=== PATIENT | male | born 1935 | race Caucasian/White ===

== ENCOUNTER 2022-07-20 23:29 | Observation (INO) ==
[2022-07-20] MEDS ORDERED: FUROSEMIDE 40 MG/4 ML VIAL IV ONE (23:56)
--- NOTE | 2022-07-20 23:59 | Emergency Department Note ---
History of Present Illness General Chief complaint: Shortness of Breath/Dyspnea Stated complaint: SOB,LEGS POOLING WATER,FATIGUE Time Seen by Provider: 07/20/22 23:33 History of Present Illness 86-year-old male with a history of CHF, A. fib, leg swelling, currently on Bumex, states this evening that he noticed his legs were more swollen than usual and he states some shortness of breath. Patient denies chest pain denies dyspnea on exertion denies cough denies fever. Patient reportedly is scheduled in a few weeks for a cardioversion due to atrial fibrillation. Patient takes daily Bumex 1 mg in the morning for which he states he took today. There are no other complaints Home Medications Medication Instructions Recorded Confirmed Type atorvastatin 20 mg tablet 20 mg PO 01/19/19 07/21/22 History coenzyme Q10 100 mg capsule 100 mg PO [facility] 01/19/19 07/21/22 History (CoQ-10) lansoprazole 30 mg capsule,delayed 30 mg PO [facility] 01/19/19 07/21/22 History release levothyroxine 88 mcg tablet 88 mcg PO [facility] 01/19/19 07/21/22 History tamsulosin 0.4 mg capsule 0.8 mg PO 01/19/19 07/21/22 History vit C 250 mg-vit E 90 mg-zinc 40 1 tab PO [facility] 01/19/19 07/21/22 History mg-copper 1 rv-njesmh-rovhcl capsule (PreserVision AREDS-2) Lactobacil.acidophilus-Bifido.animalis 1 cap PO 07/21/22 07/21/22 History 5 billion cell sprinkle capsule (Probiotic) amiodarone 200 mg tablet 200 mg PO BID 07/21/22 07/21/22 History apixaban 2.5 mg tablet (Eliquis) 2.5 mg PO BID 07/21/22 07/21/22 History bumetanide 0.5 mg tablet 0.5 mg PO QAM 07/21/22 07/21/22 History cyanocobalamin (vitamin B-12) 1,000 mcg PO QAM 07/21/22 07/21/22 History 1,000 mcg tablet (Vitamin B-12) docusate sodium 100 mg capsule 100 mg PO 07/21/22 07/21/22 History (Stool Softener) empagliflozin 10 mg tablet 5 mg PO DAILY 07/21/22 07/21/22 History (Jardiance) Allergies Allergy/AdvReac Type Severity Reaction Status Date / Time No Known Allergies Allergy Verified 07/21/22 00:50 Past Med/Surg History Medical History Enlarged prostate Melanoma Social History Smoking Status: Never smoker Preferred Language: Faroese Feels Safe at Home: Yes Immunizations: Past medical history A. fib, CHF Review of Systems A total of 10 systems reviewed and were otherwise negative Respiratory: + dyspnea Physical Exam Vital Signs Vital Signs - 24 hr 07/20/22 23:35 07/21/22 01:33 Temperature 36.3 C L Temperature Source Temporal Artery Scan Pulse Rate 72 Respiratory Rate 20 Respiratory Effort / Characteristics Non-Labored Spontaneous Respiratory Depth Normal Respiratory Pattern Regular Blood Pressure 128/71 Blood Pressure Mean 90 Pulse Oximetry 96 95 Oxygen Delivery Method Room Air Room Air Sepsis Recent Fever Within 48 Hours No Sepsis New/Unexplained Change in Mental Status No Sepsis Action Taken by Nursing No Action Required GENERAL: Patient is awake alert in no acute distress patient is resting comfortably and showing no signs of anxiety EYES: The conjunctivae are clear. The pupils are round and reactive. EARS, NOSE, MOUTH AND THROAT: The nose is without any evidence of any deformity. Mucous membranes are moist. Tongue is midline. NECK: The neck is nontender and supple. RESPIRATORY: Normal respiratory effort is noted there is no evidence of wheezing rhonchi or rales CARDIOVASCULAR: Irregularly irregular noted there no murmurs rubs or gallops normal S1 normal S2. GASTROINTESTINAL: The abdomen is soft. Abdomen is nontender. BACK: No midline tenderness or or step-off noted range of motion in flexion extension as well as rotation no signs of muscle spasm noted MUSCULOSKELETAL/EXTREMITIES: There is no evidence of gross deformity full range of motion is noted in the hips and shoulders. Bilateral lower extremity pitting edema SKIN: There is no obvious evidence of any rash. There are no petechiae, pallor or cyanosis noted. NEUROLOGIC: Patient is awake alert and oriented x3 strength is symmetric PSYCH: Normal affect Course Reevaluation(s) Reevaluation #1: Patient is resting in no distress, no chest pain no significant shortness of breath, was given IV Lasix Time: 02:22 Consultations Consultation #1: Case was discussed with the [facility] hospitalist who accepts the patient for admission for CHF and elevated troponin Time: 02:22 Administered Medications Discontinued Medications Furosemide (Furosemide 40 Mg/4 Ml Vial) 40 mg IV ONE ONE Stop: 07/20/22 23:57 Last Admin: 07/21/22 00:58 Dose: 40 mg Documented By: MED Medical Decision Making Medical Records Attestation: I reviewed the patient's medical records. Home Medications Current Medication List: was personally reviewed by me Laboratory Data Attestation: I reviewed the patient's lab results. Patient has hyponatremia, elevated BNP, elevated troponin and elevated creatinine 07/21/22 00:23 Lab Results 07/21/22 07/21/22 07/21/22 Range/Units 00:23 00:38 00:38 WBC 6.64 (4.8-10.8) K/ul RBC 4.00 L (4.70-6.10) M/uL Hgb 12.9 L (14.0-18.0) g/dl Hct 36.1 L (42.0-52.0) % MCV 90.3 (80.0-100.0) fL MCH 32.3 (25.0-34.0) pg MCHC 35.7 (32.0-36.0) g/dL RDW Std Deviation 51.6 H (36.4-46.3) fL RDW Coeff of Beata 15.8 H (11.5-14.5) % Plt Count 255 (130-400) K/uL MPV 9.5 (9.4-12.4) fL Immature Gran % (Auto) 0.5 % Neut % (Auto) 74.5 % Lymph % (Auto) 10.8 % Bennett % (Auto) 13.4 % Eos % (Auto) 0.5 % Baso % (Auto) 0.3 % Neut # (Auto) 4.95 (1.40-6.50) K/uL Lymph # (Auto) 0.72 L (1.2-3.4) K/uL Bennett # (Auto) 0.89 H (0.11-0.59) K/uL Eos # (Auto) 0.03 (0-0.50) K/uL Baso # (Auto) 0.02 (0-0.2) K/uL Immature Gran # (Auto) 0.03 (0.01-0.20) K/uL PT 13.5 H (9.0-12.0) Seconds INR 1.3 H (0.9-1.1) APTT 30.8 (21.0-31.0) Seconds PTT Ratio 1.1 Sodium 127 L (136-145) mmol/L Potassium 4.0 (3.5-5.1) mmol/L Chloride 91 L (98-107) mmol/L Carbon Dioxide 29 (21-32) mmol/L Anion Gap 7 (3-11) BUN 26 H (6-23) mg/dl Creatinine 1.53 H (0.6-1.4) mg/dl Est Cr Clr Drug Dosing 38.2 ml/min Est GFR ( Amer) 46.7 ml/min Est GFR (Non-Af Amer) 40.3 ml/min BUN/Creatinine Ratio 17.0 (10-20) Glucose 120 H (70-99(Fasting)) mg/dl Calcium 9.2 (8.5-10.1) mg/dl Total Bilirubin 1.0 (0.2-1.0) mg/dl AST 24 (13-39) U/L ALT 16 (7-52) U/L Alkaline Phosphatase 97 (34-104) U/L Troponin I High Sens 130.5 H* (0-20) pg/ml B-Natriuretic Peptide (0-100) pg/ml Total Protein 7.2 (6.0-8.3) gm/dl Albumin 4.1 (3.4-5.0) gm/dl Globulin 3.1 (2.5-4.0) gm/dl Albumin/Globulin Ratio 1.3 (0.9-2) SARS-CoV-2, RNA, NAAT (NEGATIVE) 07/21/22 07/21/22 Range/Units 00:38 01:04 WBC (4.8-10.8) K/ul RBC (4.70-6.10) M/uL Hgb (14.0-18.0) g/dl Hct (42.0-52.0) % MCV (80.0-100.0) fL MCH (25.0-34.0) pg MCHC (32.0-36.0) g/dL RDW Std Deviation (36.4-46.3) fL RDW Coeff of Beata (11.5-14.5) % Plt Count (130-400) K/uL MPV (9.4-12.4) fL Immature Gran % (Auto) % Neut % (Auto) % Lymph % (Auto) % Bennett % (Auto) % Eos % (Auto) % Baso % (Auto) % Neut # (Auto) (1.40-6.50) K/uL Lymph # (Auto) (1.2-3.4) K/uL Bennett # (Auto) (0.11-0.59) K/uL Eos # (Auto) (0-0.50) K/uL Baso # (Auto) (0-0.2) K/uL Immature Gran # (Auto) (0.01-0.20) K/uL PT (9.0-12.0) Seconds INR (0.9-1.1) APTT (21.0-31.0) Seconds PTT Ratio Sodium (136-145) mmol/L Potassium (3.5-5.1) mmol/L Chloride (98-107) mmol/L Carbon Dioxide (21-32) mmol/L Anion Gap (3-11) BUN (6-23) mg/dl Creatinine (0.6-1.4) mg/dl Est Cr Clr Drug Dosing ml/min Est GFR ( Amer) ml/min Est GFR (Non-Af Amer) ml/min BUN/Creatinine Ratio (10-20) Glucose (70-99(Fasting)) mg/dl Calcium (8.5-10.1) mg/dl Total Bilirubin (0.2-1.0) mg/dl AST (13-39) U/L ALT (7-52) U/L Alkaline Phosphatase (34-104) U/L Troponin I High Sens (0-20) pg/ml B-Natriuretic Peptide 577 H (0-100) pg/ml Total Protein (6.0-8.3) gm/dl Albumin (3.4-5.0) gm/dl Globulin (2.5-4.0) gm/dl Albumin/Globulin Ratio (0.9-2) SARS-CoV-2, RNA, NAAT NEGATIVE (NEGATIVE) Imaging Data Attestation: I personally reviewed and interpreted this imaging study as follows: My Impression: Chest x-ray interpreted by me cardiomegaly and CHF ECG Data Attestation: I personally reviewed and interpreted this ECG as follows: Additional Comments: EKG interpreted by me atrial fibrillation rate of 61 left axis deviation no obvious ST segment elevation or depression MDM Narrative Medical decision making differential diagnosis includes CHF, atrial fibrillation, pedal edema, electrolyte abnormality, renal dysfunction Plan is to check labs EKG, chest x-ray, give IV diuretic External medical records were reviewed by me Nursing notes were independently reviewed by me and appreciated Independent history was provided by son who is at bedside Patient's chest x-ray shows CHF Patient was given IV Lasix Patient has an elevated troponin Patient's heart score is moderate Patient will be admitted to the hospitalist service as the patient has risk for cardiac event Impression & Plan Congestive heart failure, Elevated troponin Discharge Plan Visit Data Chief Complaint: Shortness of Breath/Dyspnea Stated Complaint: SOB,LEGS POOLING WATER,FATIGUE ED Provider: Wali Salomon Discharge Problem: Congestive heart failure, Elevated troponin Patient Disposition: Admitted As Inpatient Forms Stand Alone Forms: My [facility] Prescriptions Prescriptions: No Action atorvastatin 20 mg Tablet 20 mg PO HS levothyroxine 88 mcg Tablet 88 mcg PO QAM tamsulosin 0.4 mg Capsule 0.8 mg PO HS lansoprazole 30 mg Capsule,Delayed Release(Dr/Ec) 30 mg PO QAM coenzyme Q10 [CoQ-10] 100 mg Capsule 100 mg PO QAM PreserVision AREDS-2 [id number] Capsule 1 tab PO QAM amiodarone 200 mg tablet 200 mg PO BID cyanocobalamin (vitamin B-12) [Vitamin B-12] 1,000 mcg Tablet 1,000 mcg PO QAM bumetanide 0.5 mg tablet 0.5 mg PO QAM docusate sodium [Stool Softener] 100 mg Capsule 100 mg PO HS Eliquis 2.5 mg tablet 2.5 mg PO BID Probiotic 5 billion cell Capsule, Sprinkle 1 cap PO HS Jardiance 10 mg tablet 5 mg PO DAILY Rx Instructions: PER PT'S SON "HAD BEEN TAKING 10 MG FOR SOME TIME, BUT WAS TO BE ONLY TAKING 5 MG". Referrals Referrals: Tin Overton [Primary Care Provider] -
[2022-07-21 00:56] LABS: Basophils # (auto) 0.02 K/uL (0-0.2); Basophils % (auto) 0.3 %; Eosinophils # (auto) 0.03 K/uL (0-0.50); Eosinophils % (auto) 0.5 %; Hematocrit (blood only) 36.1 % (42.0-52.0); Hemoglobin 12.9 g/dl (14.0-18.0); Immature Granulocytes # (auto) 0.03 K/uL (0.01-0.20); Immature Granulocytes % (auto) 0.5 %; Lymphocytes # (auto) 0.72 K/uL (1.2-3.4); Lymphocytes % (auto) 10.8 %; Mean Corpuscular Hemoglobin 32.3 pg (25.0-34.0); Mean Corpuscular Hgb Conc 35.7 g/dL (32.0-36.0); Mean Corpuscular Volume 90.3 fL (80.0-100.0); Mean Platelet Volume 9.5 fL (9.4-12.4); Monocytes # (auto) 0.89 K/uL (0.11-0.59); Monocytes % (auto) 13.4 %; Neutrophils # (auto) 4.95 K/uL (1.40-6.50); Neutrophils % (auto) 74.5 %; Platelet Count 255 K/uL (130-400); RDW Coefficient of Variation 15.8 % (11.5-14.5); RDW Standard Deviation 51.6 fL (36.4-46.3); White Blood Count 6.64 K/ul (4.8-10.8)
[2022-07-21 01:44] LABS: Albumin Globulin Ratio 1.3 (0.9-2); Albumin Level 4.1 gm/dl (3.4-5.0); Calcium 9.2 mg/dl (8.5-10.1); Creatinine Clr Calc Pharmacy 38.2 ml/min; Est GFR (African American) 46.7 ml/min; Est GFR (Non-African American) 40.3 ml/min; Globulin 3.1 gm/dl (2.5-4.0); Total Protein 7.2 gm/dl (6.0-8.3)
[2022-07-21 01:59] LABS: Troponin I High Sensitivity 130.5 pg/ml (0-20)
[2022-07-21 02:18] LABS: INR 1.3 (0.9-1.1); Partial Thromboplastin Ratio 1.1; Partial Thromboplastin Time 30.8 Seconds (21.0-31.0); Prothrombin Time 13.5 Seconds (9.0-12.0)
--- NOTE | 2022-07-21 02:22 | History & Physical Report ---
Date of Service July 21, 2022 Assessment & Plan (1) Congestive heart failure: Plan: Deion is an 86 year old male w/ PmHx atrial flutter s/p ablation x2, chronic diastolic HF w/ recent hospitalization 05/2022, RBBB w/ L anterior fascicular block, chronic lower extremity edema, high grade asymptomatic L internal carotid artery stenosis s/p L carotid endarterectomy 01/2019, a. fib on Eliquis, hypothyroidism, BPH admitted for CHF exacerbation. Acute on Chronic CHF exacerbation: -BNP 577, troponin 130.5, BUN 26, creatinine 1.53. -CXR w/ cardiomegaly and mild pulmonary congestion. -EKG w/ atrial fibrillation. -Echo from 05/2022 w/ EF 55-60%, severe R atrial enlargement. -Given exam and still 5lbs above ideal weight, most likely CHF exacerbation likely residual from May exacerbation. -Less likely pulmonary infection given lack of systemic symptoms or decrease O2 sat. -Given 40mg IV Lasix in the ED. -Started on Bumex 1mg BID IV. -Strict I&O's. Atrial fibrillation: -Rate controlled, continue home amiodarone, continue home Eliquis 2.5mg BID. -Continue to monitor on med/tele. MAXIMINO on CKD: -Creatinine 1.53 on admission. -Baseline around 1.2-1.4 based on [facility] records. -May be secondary to fluid overload. -Continue plan as above, trend BMP. Elevated Troponin: -Troponin 130.5 on admission. -Repeat ordered. -Most likely due to demand ischemia from fluid overload. -Trend till peak. BLE Erythema: -New skin changes to the b/l lower extremities. -Anticoagulated on eliquis, bilateral, less likely clots. -May be new skin infection - started on doxycycline 100mg BID for 7 days. Hypothyroidism: -Continue home levothryoxine. BPH: -Continue home tamsulosin. HLD: -Continue home atorvastatin. GERD: -Continue home lansoprazole. DVT Prophylaxis: (2) Hypothyroid: (3) Atrial fibrillation: (4) GERD (gastroesophageal reflux disease): (5) Sleep apnea: History of Present Illness Chief Complaint: Dyspnea Primary Care Provider: Tin Overton Deion is an 86 year old male w/ PmHx atrial flutter s/p ablation x2, chronic diastolic HF w/ recent hospitalization 05/2022, RBBB w/ L anterior fascicular block, chronic lower extremity edema, high grade asymptomatic L internal carotid artery stenosis s/p L carotid endarterectomy 01/2019, a. fib on Eliquis, hypothyroidism, BPH coming to the ED for dyspnea. Patient states that he was lying in bed earlier today when he noticed that his feet and ankles were more swollen than usual. He states that he also had some dyspnea with exertion. Denies any chest pain, fevers, chills, shortness of breath at rest, diarrhea, constipation, nausea, vomiting. [facility] He states that prior to March he was in as good of health as he could be with his heart failure however he was in [place] between the months of March and May. He developed atrial fibrillation sometime in between then and had one hospitalization around Valentina time in [place] for CHF exacerbation. He saw Dr. Chávez recently this month and it was decided that they would trial an ablation for the a. fib on 08/04/2022. He is not a smoker, no tobacco use, no alcohol, no previous history of COPD, asthma, or pulmonary disease. He drinks a glass of wine every day in the evening, has a low to no salt diet, states he had rooney chops for dinner today. Patient states his baseline weight is around 185-186lbs and when he weighed himself earlier in the day his weight was 190lbs. Patient has redness at the bilateral lower extremities that are new to him. In the ED CBC unremarkable, INR 1.3, Na 127, BUN 26, creatinine 1.53, BNP 577, Trop 130.5, COVID negative. CXR w/ cardiomegaly and mild pulmonary congestion, EKG w/ atrial fibrillation. He was given 40mg IV Lasix. Upon further inspection of [facility] chart, patient saw Dr. Chávez 07/16/2022. Dr. Chávez notes patient has history of atrial flutter w/ ablation x2 November 2015 and March 2018, acute on chronic diastolic and R sided HF exacerbated by new onset a. fib in late 2021, hx of L carotid endarterectomy 2018, hyponatremia secondary to heart failure and MAXIMINO ontop of CKD during his hospitalization in [facility] in 05/2022. At the hospital in [place] he had TTE which revealed normal LV size and function w/ moderate concentric L ventricular hypertrophy, EF 55-60%, RV mildly dilated w/ mild RV dysfunction, mod left atrial enlargement, severe R atrial enlargement, mild aortic and mitral regurg, mod tricuspid regurg w/ mild pulmonary HTN and large left pleural effusion. He was still up 8 pounds upon return from [place], short of breath w/ sentences at time of visit w/ Dr. Chávez, still with significant swelling even to distal thighs w/ use of compression stockings. Most recent blood work showed sodium improved to 128, BUN 33, creatinine 1.48, K+ 4.8. He was started on amiodarone 200mg BID for loading dose over two weeks then plan for the cardioversion. Allergies Allergy/AdvReac Type Severity Reaction Status Date / Time No Known Allergies Allergy Verified 07/21/22 00:50 Home Medications Medication Instructions Recorded Confirmed Type atorvastatin 20 mg tablet 20 mg PO 01/19/19 07/21/22 History coenzyme Q10 100 mg capsule 100 mg PO [facility] 01/19/19 07/21/22 History (CoQ-10) lansoprazole 30 mg capsule,delayed 30 mg PO [facility] 01/19/19 07/21/22 History release levothyroxine 88 mcg tablet 88 mcg PO [facility] 01/19/19 07/21/22 History tamsulosin 0.4 mg capsule 0.8 mg PO 01/19/19 07/21/22 History vit C 250 mg-vit E 90 mg-zinc 40 1 tab PO [facility] 01/19/19 07/21/22 History mg-copper 1 no-uurzas-kpajsb capsule (PreserVision AREDS-2) Lactobacil.acidophilus-Bifido.animalis 1 cap PO 07/21/22 07/21/22 History 5 billion cell sprinkle capsule (Probiotic) amiodarone 200 mg tablet 200 mg PO BID 07/21/22 07/21/22 History apixaban 2.5 mg tablet (Eliquis) 2.5 mg PO BID 07/21/22 07/21/22 History bumetanide 0.5 mg tablet 0.5 mg PO QAM 07/21/22 07/21/22 History cyanocobalamin (vitamin B-12) 1,000 mcg PO QAM 07/21/22 07/21/22 History 1,000 mcg tablet (Vitamin B-12) docusate sodium 100 mg capsule 100 mg PO HS 07/21/22 07/21/22 History (Stool Softener) empagliflozin 10 mg tablet 5 mg PO DAILY 07/21/22 07/21/22 History (Jardiance) Past Med/Surg History Medical History Enlarged prostate Melanoma Social History Smoking Status: Never smoker Hx Alcohol Use: Yes Alcohol type: wine Hx Substance Use: No Preferred Language: Frisian Communication Ability: Effective Process Laboratory Specialist Required: No Beliefs That Will Affect Care: None Current Living Situation: Spouse Current Living Situation Comment: Apartment Feels Safe at Home: Yes Safety Concerns: Feels Safe At This Time Assistive Devices: None Review of Systems Review of Systems: As per HPI. Physical Exam Constitutional: WD/WN, vitals as above Respiratory: normal respiratory effort, lungs clear to auscultation Cardiovascular: Rate/Rhythm: + irregularly irregular Heart Sounds: normal S1 and normal S2 2+ pitting edema at bilateral lower extremities up to the rivero, 1+ pitting edema up to knee. Gastrointestinal (Abdomen): normal bowel sounds, soft, nontender, no hepatosplenomegaly Skin: erythematous blanching rash across bilateral lower extremities. Psychiatric: A+Ox3, euthymic affect Results & Data Results & Data ([facility]) Vital Signs (Past 12 Hours) Vital Signs Temp Pulse Resp BP Pulse Ox O2 Del Method 07/21/22 01:33 95 Room Air 07/20/22 23:35 36.3 C L 72 20 128/71 96 Room Air Supervising Physician Co-Signing Physician Notes Attending addendum: I have physically seen this patient, have supervised the medical residents activities, and agree with the H&P unless as otherwise noted. Assessment and Plan: Elevated troponin/acute on chronic HFpEF with EF 55-60%/atrial fibrillation- Troponin 130.5 on admission and BNP 577 The patient will be admitted to telemetry for serial cardiac enzymes, serial EKG's, cardiac rhythm monitoring Received Lasix 40 mg IV in ED Hold oral Bumex 0.5 mg twice daily, and change to Bumex 1 mg IV twice daily Continue amiodarone and Eliquis Check serial renal profile and magnesium levels Bilateral lower extremity cellulitis- Doxycycline as noted Check MRSA swab MAXIMINO on CKD- Creatinine 1.53 with baseline range 1.2-1.4 Follow laboratories as noted Hyperlipidemia- Continue atorvastatin Check a fasting lipid panel Hypothyroidism- Continue levothyroxine BPH- Continue tamsulosin GERD- Continue lansoprazole/pantoprazole Remaining orders and notations as noted Resident Activity Tracking Resident Involvement: Resident Care Provided Care Provided: Adult Hospital Medicine
[2022-07-21] MEDS ORDERED: ACETAMINOPHEN 325 MG TAB PO PRN (03:36)
[2022-07-21] MEDS ORDERED: LEVOTHYROXINE SODIUM 88 MCG TABLET PO SCH (06:30)
--- NOTE | 2022-07-21 07:29 | XRay Report ---
XR chest 1V portable CLINICAL HISTORY: Chest pain, nonspecific COMPARISON STUDY: Chest radiograph January 16, 2019. FINDINGS: Left neck surgical clips are incidentally noted. There is no pneumothorax. Small bilateral pleural effusions with bibasilar opacities are present. Moderate cardiomegaly is noted with interstit ial thickening.. IMPRESSION: Cardiomegaly with interstitial pulmonary edema with small bilateral pleural effusions and associated bibasilar opacities. Radiographic follow-up to ensure resolution is recommended. ACT 112: Negative or not required by law. Electronically signed by: Juan Ramon Sharpe M.D. 07/21/2022 7:27 AM
--- NOTE | 2022-07-21 07:36 | Hospitalist Progress Note ---
Date of Service July 21, 2022 Assessment & Plan (1) Congestive heart failure: Plan: Deion is an 86 year old male w/ PmHx atrial flutter s/p ablation x2, chronic diastolic HF w/ recent hospitalization 05/2022, RBBB w/ L anterior fascicular block, chronic lower extremity edema, high grade asymptomatic L internal carotid artery stenosis s/p L carotid endarterectomy 01/2019, a. fib on Eliquis, hypothyroidism, BPH admitted for CHF exacerbation. Acute on Chronic CHF exacerbation: -BNP 577, troponin 130.5, BUN 26, creatinine 1.53. -CXR w/ cardiomegaly and mild pulmonary congestion. -EKG w/ atrial fibrillation. -Echo from 05/2022 w/ EF 55-60%, severe R atrial enlargement. -Given exam and still 5lbs above ideal weight, most likely CHF exacerbation likely residual from May exacerbation. -Less likely pulmonary infection given lack of systemic symptoms or decrease O2 sat. -Given 40mg IV Lasix in the ED. -Started on Bumex 1mg BID IV. -Strict I&O's. Atrial fibrillation: -Rate controlled, continue home amiodarone, continue home Eliquis 2.5mg BID. -Continue to monitor on med/tele. MAXIMINO on CKD: -Creatinine 1.53 on admission. -Baseline around 1.2-1.4 based on [facility] records. -May be secondary to fluid overload. -Continue plan as above, trend BMP. Elevated Troponin: -Troponin 130.5 on admission. -Repeat ordered. -Most likely due to demand ischemia from fluid overload. -Trend till peak. BLE Erythema: -New skin changes to the b/l lower extremities. -Anticoagulated on eliquis, bilateral, less likely clots. -May be new skin infection - started on doxycycline 100mg BID for 7 days. Hypothyroidism: -Continue home levothryoxine. BPH: -Continue home tamsulosin. HLD: -Continue home atorvastatin. GERD: -Continue home lansoprazole. DVT Prophylaxis: (2) Hypothyroid: (3) Atrial fibrillation: (4) GERD (gastroesophageal reflux disease): (5) Sleep apnea: Admission and Anticipated Discharge Date Admission Date: July 21, 2022 Review of Systems Review of Systems: As per HPI. Physical Exam Physical Exam: Constitutional:L WD/WN, vitals as a yulisa Respiratory: normal respiratory effort, lungs lisa ar to auscultation Cardiovascular:L Rate/Rhythm: + irr egularly irregular Heart Sounds: no rmal S1 and normal S2 2+ pitting ed fabio at bilateral l ower extremities u p to the rivero, 1+ pitting edema up t o knee. Gastrointestinal ( Abdomen): normal bowel sound s, soft, nontender , no hepatosplenom egaly Skin: erythematous chris thomas rash across b ilateral lower ext remities. Psychiatric: A+Ox3, euthymic af fect Results & Data Results & Data ([facility]) Vital Signs (Past 12 Hours) Vital Signs Temp Pulse Pulse Resp BP BP Pulse Ox 07/21/22 06:40 56 L 118/60 95 07/21/22 04:30 58 L 19 93 07/21/22 04:21 121/69 07/21/22 04:21 72 18 97 07/21/22 04:00 51 L 19 94 07/21/22 03:30 57 L 17 07/21/22 03:00 54 L 21 93 07/21/22 02:30 52 L 19 96 07/21/22 02:12 54 L 19 95 07/21/22 04:26 55 L 16 121/69 96 07/21/22 01:33 95 07/20/22 23:35 36.3 C L 72 20 128/71 96 O2 Del Method 07/21/22 06:40 Room Air 07/21/22 04:30 07/21/22 04:21 07/21/22 04:21 07/21/22 04:00 07/21/22 03:30 07/21/22 03:00 07/21/22 02:30 07/21/22 02:12 07/21/22 04:26 Room Air 07/21/22 01:33 Room Air 07/20/22 23:35 Room Air
[2022-07-21] MEDS ORDERED: NON-FORMULARY MEDICATION (Coenzyme Q10 [Coq-10] 100 mg Capsule) PO SCH (09:00)
[2022-07-21] MEDS ORDERED: EMPAGLIFLOZIN 10 MG TAB PO SCH (09:00)
[2022-07-21] MEDS ORDERED: BUMETANIDE 1 MG in SYRINGE 0 ML IV SCH (09:00)
[2022-07-21] MEDS ORDERED: PANTOprazole 40 MG TAB PO SCH (09:00)
[2022-07-21] MEDS ORDERED: AMIODARONE 200 MG TAB PO SCH (09:00)
[2022-07-21] MEDS ORDERED: APIXABAN 2.5 MG TAB PO SCH (09:00)
[2022-07-21] MEDS ORDERED: DOXYCYCLINE HYCLATE 100 MG CAP PO SCH (09:00)
[2022-07-21 12:55] LABS: BUN Creatinine Ratio 19.1 (10-20); Calcium 9.1 mg/dl (8.5-10.1); Creatinine Clr Calc Pharmacy 41.6 ml/min; Est GFR (African American) 51.5 ml/min; Est GFR (Non-African American) 44.5 ml/min; Potassium 3.8 mmol/L (3.5-5.1)
--- NOTE | 2022-07-21 15:28 | Electrocardiogram Report ---
Test Reason : Blood Pressure : / mmHG Vent. Rate : 061 BPM Atrial Rate : 312 BPM P-R Int : 000 ms QRS Dur : 110 ms QT Int : 418 ms P-R-T Axes : 000 -63 004 degrees QTc Int : 420 ms Atrial fibrillation Left axis deviation Low voltage QRS Right bundle branch block Possible Anterolateral infarct , age undetermined Abnormal ECG No previous ECGs available Confirmed by Darío Stockton ([id number]) on 07/21/2022 3:28:37 PM Referred By: REFERRED SELF Confirmed By:Darío Stockton
--- NOTE | 2022-07-21 18:39 | Discharge Summary ---
Date of Service July 21, 2022 Admission HPI Per Admitting Provider Deion is an 86 year old male w/ PmHx atrial flutter s/p ablation x2, chronic diastolic HF w/ recent hospitalization 05/2022, RBBB w/ L anterior fascicular block, chronic lower extremity edema, high grade asymptomatic L internal carotid artery stenosis s/p L carotid endarterectomy 01/2019, a. fib on Eliquis, hypothyroidism, BPH coming to the ED for dyspnea. Patient states that he was lying in bed earlier today when he noticed that his feet and ankles were more swollen than usual. He states that he also had some dyspnea with exertion. Denies any chest pain, fevers, chills, shortness of breath at rest, diarrhea, constipation, nausea, vomiting. He follows with Dr. Chávez for cardiology outpatient. He states that prior to March he was in as good of health as he could be with his heart failure however he was in [place] between the months of March and May. He developed atrial fibrillation sometime in between then and had one hospitalization around [place] time in [place] for CHF exacerbation. He saw Dr. Chávez recently this month and it was decided that they would trial an ablation for the a. fib on 08/04/2022. He is not a smoker, no tobacco use, no alcohol, no previous history of COPD, asthma, or pulmonary disease. He drinks a glass of wine every day in the evening, has a low to no salt diet, states he had rooney chops for dinner today. Patient states his baseline weight is around 185-186lbs and when he weighed himself earlier in the day his weight was 190lbs. Patient has redness at the bilateral lower extremities that are new to him. In the ED CBC unremarkable, INR 1.3, Na 127, BUN 26, creatinine 1.53, BNP 577, Trop 130.5, COVID negative. CXR w/ cardiomegaly and mild pulmonary congestion, EKG w/ atrial fibrillation. He was given 40mg IV Lasix. Upon further inspection of [facility] chart, patient saw Dr. Chávez 07/16/2022. Dr. Chávez notes patient has history of atrial flutter w/ ablation x2 November 2015 and March 2018, acute on chronic diastolic and R sided HF exacerbated by new onset a. fib in late 2021, hx of L carotid endarterectomy 2019, hyponatremia secondary to heart failure and MAXIMINO ontop of CKD during his hospitalization in [facility] in 05/2022. At the hospital in [place] he had TTE which revealed normal LV size and function w/ moderate concentric L ventricular hypertrophy, EF 55-60%, RV mildly dilated w/ mild RV dysfunction, mod left atrial enlargement, severe R atrial enlargement, mild aortic and mitral regurg, mod tricuspid regurg w/ mild pulmonary HTN and large left pleural effusion. He was still up 8 pounds upon return from [place], short of breath w/ sentences at time of visit w/ Dr. Chávez, still with significant swelling even to distal thighs w/ use of compression stockings. Most recent blood work showed sodium improved to 128, BUN 33, creatinine 1.48, K+ 4.8. He was started on amiodarone 200mg BID for loading dose over two weeks then plan for the cardioversion. Admission Exam Per Admitting Provider Constitutional: WD/WN, vitals as above Respiratory: normal respiratory effort, lungs clear to auscultation Cardiovascular: Rate/Rhythm: + irregularly irregular Heart Sounds: normal S1 and normal S2 2+ pitting edema at bilateral lower extremities up to the rivero, 1+ pitting edema up to knee. Gastrointestinal (Abdomen): normal bowel sounds, soft, nontender, no hepatosplenomegaly Skin: erythematous blanching rash across bilateral lower extremities. Psychiatric: A+Ox3, euthymic affect Principal Diagnosis HF Exacerbation Discharge Exam Gen: NAD, alert, interactive HEENT: Supple, no LAD, no thyromegaly, no JVD Resp:Non-labored, no wheezing/rhonchi/rales, CTAB CV:irregularly irregular, normal S1/S2, no M/R/G Abd: Soft, non-distended, no TTP, normoactive bowels, no masses Extr: 2+ dp bilaterally, 2+ pitting edema to thigh bilaterally Skin: Symmetric erythema present on bilateral lower extremities, no warmth or TTP, no purulence, scant serious drainage Discharge Data Allergies Allergy/AdvReac Type Severity Reaction Status Date / Time No Known Allergies Allergy Verified 07/21/22 00:50 Consultations 07/21/22 02:08 ED Decision to Admit Stat Hospital Course (1) Congestive heart failure: (2) Hypothyroid: (3) Atrial fibrillation: (4) GERD (gastroesophageal reflux disease): (5) Sleep apnea: Plan Deion is an 86 year old male w/ PmHx atrial flutter s/p ablation x2, chronic diastolic HF w/ recent hospitalization 05/2022, RBBB w/ L anterior fascicular block, chronic lower extremity edema, high grade asymptomatic L internal carotid artery stenosis s/p L carotid endarterectomy 01/2019, a. fib on Eliquis, hypothyroidism, BPH admitted for CHF exacerbation. Acute on Chronic CHF exacerbation: -BNP 577, troponin 130.5, BUN 26, creatinine 1.53. -CXR w/ cardiomegaly and mild pulmonary congestion. -EKG w/ atrial fibrillation. -Echo from 05/2022 w/ EF 55-60%, severe R atrial enlargement. -Given exam and still 5lbs above ideal weight, most likely CHF exacerbation likely residual from May exacerbation. -Less likely pulmonary infection given lack of systemic symptoms or decrease O2 sat. -Given 40mg IV Lasix in the ED. -Started on Bumex 1mg BID IV. -Strict I&O's. --- Good diuresis inpatient, discharged with advise to take 1.5 mg Bumex daily for two days --- Patient to follow up outpatient with Research Staff Member, plan for cardioversion 07/23 AFib Atrial fibrillation: -Rate controlled, continue home amiodarone, continue home Eliquis 2.5mg BID. -Continue to monitor on med/tele. --- Move up date for cardioversion d/t increased HF exacerbations, discussed with Dr. Saira STANTON on CKD: -Creatinine 1.53 on admission. -Baseline around 1.2-1.4 based on [facility] records. -May be secondary to fluid overload. -Continue plan as above, trend BMP. --- Suspected d/t acute volume overload, advised diuresis Elevated Troponin: -Troponin 130.5 on admission. -Repeat ordered. -Most likely due to demand ischemia from fluid overload. -Trend till peak. --- Suspect d/t demand ischemia in the setting of acute HF exacerbation, troponin downtrending BLE Erythema: -New skin changes to the b/l lower extremities. -Anticoagulated on eliquis, bilateral, less likely clots. --- Erythema of bilateral LE most consistent with skin changes associated with chronic venous stasis, explained to patient --- No acute need for antibiotics as erythema not consistent with infection Hypothyroidism: -Continue home levothyroxine. BPH: -Continue home tamsulosin. HLD: -Continue home atorvastatin. GERD: -Continue home lansoprazole. Total Time Total Time Spent Total Time Spent (In Minutes): <30 Discharge Plan Discharge Items Patient Disposition: Home - Self-Care Reason For Visit: CHF EXACERBATION Discharge Diagnosis: CHF Exacerbation LE Edema Activity: Per Instructions section Non-emergency contact: Primary Care Provider and Research Staff Member Call non-emergency contact if: you have any medication questions and your symp toms worsen Follow-up/Referrals: Tin Overton [Primary Care Provider] - Rene Chávez DO [Physician] - (Patient to follow up Wednesday) Diet: Heart Healthy and Low Sodium (2gm) Addtl Attending Provider Instructions: You presented to the hospital with worsening lower extremity swelling and redness, you were found to be experiencing a heart failure exacerbation. This was determined based on your worsening swelling, labs, and chest x-ray showing pulmonary edema. While you were in the hospital, you received an IV diuretic (Bumex) to help reduce the fluid in your legs and lungs. During your stay, your vitals remained normal and you did not require any supplemental oxygen, which reassured us that it was reasonable to discharge you to home with close follow up with your Research Staff Member. You noted that your home dose of Bumex is 1 mg daily, for the next two days, please take 1.5 mg daily. It is planned for you to follow up with Dr. Chávez (your Research Staff Member) on Wednesday, he will adjust your diuretic as needed from there. After discussion with Dr. Chávez, it was noted that your Cardiology team will me moving up the date of your planned cardioversion (for Atrial Fibrillation) in an effort to help control your heart failure. During your admission, increased redness in your lower extremities was noted. As we discussed, this skin change is most likely associated with chronic venous stasis. As the swelling in your legs persists, it is not uncommon for small pieces of blood products to become lodged in the skin, causing the red coloration. This redness can wax and wane with the swelling of your legs. There is no evidence of infection in your legs, the redness and occasional clear seeping is associated with your chronic swelling. You will not need to be discharged with any antibiotics. A discharge summary will be sent to your primary care physician to ensure continuity of care. Please bring this discharge summary with you to your next office appointment so that your provider can review it at that time. Follow-up appointments: - I encourage you to make a follow up appointment with your PCP in 1 week - It is planned for you to have a follow up appointment with Dr. Chávez on Wednesday Medications: - Increase your home oral Bumex dose to 1.5 mg daily for two days Contact your Primary Care Provider if you experience: - Difficulty following your treatment plan or taking medications Call 911 or go to the emergency department if you experience: - Sudden, severe abdominal pain or nausea/vomiting - Severe chest pain, or chest pain that radiates (moves) to your jaw or arm - Sudden, severe shortness of breath or difficulty breathing It was a pleasure to be a part of your care, Dr. Cas Murcia Pending Studies at Discharge: No Stand-Alone Forms: [facility] Medications and DC Order Prescriptions: Continued atorvastatin 20 mg Tablet 20 mg PO HS levothyroxine 88 mcg Tablet 88 mcg PO QAM tamsulosin 0.4 mg Capsule 0.8 mg PO HS lansoprazole 30 mg Capsule,Delayed Release(Dr/Ec) 30 mg PO QAM coenzyme Q10 [CoQ-10] 100 mg Capsule 100 mg PO QAM PreserVision AREDS-2 [id number] Capsule 1 tab PO QAM amiodarone 200 mg tablet 200 mg PO BID cyanocobalamin (vitamin B-12) [Vitamin B-12] 1,000 mcg Tablet 1,000 mcg PO QAM bumetanide 0.5 mg tablet 0.5 mg PO QAM docusate sodium [Stool Softener] 100 mg Capsule 100 mg PO HS Eliquis 2.5 mg tablet 2.5 mg PO BID Probiotic 5 billion cell Capsule, Sprinkle 1 cap PO HS Jardiance 10 mg tablet 5 mg PO DAILY Rx Instructions: PER PT'S SON "HAD BEEN TAKING 10 MG FOR SOME TIME, BUT WAS TO BE ONLY TAKING 5 MG". Discharge Orders: Discharge Order (Routine); Ordered 07/21/22 Ordered By: Cas Murcia Admission Data Admit Date/Time: 07/21/22 02:52 Attending Provider: Arias Alcazar Admit Provider: Ben Arita Primary Care Provider: Tin Overton Other Providers: Perico Sprague Other Interventions: Discharge Summary Assessment (RN) Last Done: 07/21/22 17:52 Supervising Physician Co-Signing Physician Notes I personally examined the patient and verified all aguirre points of history and exam, discussed case, and agree with decision making with Dr Murcia Feeling better and would very much like to go home. 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 Discussed diethe is quite good at avoiding sodium. Vitals noted, in general he is awake and alert pleasant no distress. HEENT normocephalic atraumatic mucous membranes moist. Breathing unlabored no accessory muscle use good effort. Skin shows no rashes no pallor or icterus. He is 95 to 99% on room air. Extremities show no cyanosis or clubbing he has bilateral approximately 2+ lower extremity edema with venous stasis changes, no erythema no tenderness nothing consistent with cellulitis, the redness is quite symmetric and fairly dull Acute on chronic diastolic CHF/otherwise known as acute on chronic HFpEFimproved, safe/stable for home. Currently notes he is on 1 mg of Bumex dailywe will have him take 1.5 daily for the next 2 days and see cardiology on Wednesday. As it relates to his atrial fibrillation, cardiology believes that sinus rhythm may help his CHF statuscardioversion has been moved up to Wednesday in that respect. Continue low-sodium diet. venous stasis changes without evidence of cellulitis, no need for abx at discharge.
--- NOTE | 2022-07-21 19:08 | Billing Data ---
Date of Service July 21, 2022 Coding Level of Care Code HOSP INP/OBS DISCH 30 MIN/LESS
--- NOTE | 2022-07-21 19:09 | Billing Data ---
Date of Service July 21, 2022 Coding Level of Care Code HOSP INP/OBS DISCH 30 MIN/LESS
[2022-07-21] MEDS ORDERED: ATORVASTATIN 20 MG TAB PO SCH (21:00)
[2022-07-21] MEDS ORDERED: DOCUSATE SODIUM 100 MG CAP PO SCH (21:00)
[2022-07-21] MEDS ORDERED: TAMSULOSIN HCL 0.4 MG CAP PO SCH (21:00)
--- NOTE | 2022-07-22 03:51 | Billing Data ---
Date of Service July 22, 2022 Coding Level of Care Code 58854 INT INP/OBS CARE
== END 2022-07-21 18:08 | disposition home or self-care (01) ==
LOC: ED 23:29 → SUATTDRO 07-21 02:52 → EDINP 07-21 02:52 → INTOOBSV 07-21 02:52 → EDINP 07-21 03:36

== ENCOUNTER 2022-11-25 14:01 | Inpatient (IN) ==
[2022-11-25 14:42] LABS: Basophils # (auto) 0.03 K/uL (0-0.2); Basophils % (auto) 0.5 %; Eosinophils # (auto) 0.03 K/uL (0-0.50); Eosinophils % (auto) 0.5 %; Hemoglobin 13.4 g/dl (14.0-18.0); Immature Granulocytes # (auto) 0.01 K/uL (0.01-0.20); Immature Granulocytes % (auto) 0.2 %; Lymphocytes % (auto) 7.7 %; Mean Corpuscular Hemoglobin 32.6 pg (25.0-34.0); Mean Corpuscular Hgb Conc 35.3 g/dL (32.0-36.0); Mean Corpuscular Volume 92.5 fL (80.0-100.0); Mean Platelet Volume 9.2 fL (9.4-12.4); Monocytes # (auto) 0.67 K/uL (0.11-0.59); Monocytes % (auto) 10.4 %; Neutrophils # (auto) 5.22 K/uL (1.40-6.50); Neutrophils % (auto) 80.7 %; Platelet Count 266 K/uL (130-400); RDW Standard Deviation 50.4 fL (36.4-46.3); Red Blood Count 4.11 M/uL (4.70-6.10); White Blood Count 6.46 K/ul (4.8-10.8)
[2022-11-25 15:11] LABS: Alanine Aminotransferase 18 U/L (7-52); Albumin Globulin Ratio 1.2 (0.9-2); Albumin Level 4.1 gm/dl (3.4-5.0); Alkaline Phosphatase 109 U/L (34-104); Anion Gap 7 (3-11); BUN Creatinine Ratio 19.2 (10-20); Bilirubin,Total 0.6 mg/dl (0.2-1.0); Blood Urea Nitrogen 23 mg/dl (6-23); Calcium 8.7 mg/dl (8.6-10.3); Carbon Dioxide 25 mmol/L (21-32); Chloride 85 mmol/L (98-107); Creatinine Clr Calc Pharmacy 43.9 ml/min; Est GFR (African American) 62.2 ml/min; Est GFR (Non-African American) 53.7 ml/min; Globulin 3.4 gm/dl (2.5-4.0); Glucose 112 mg/dl (70-99(Fasting)); Sodium 117 mmol/L (136-145); Total Protein 7.5 gm/dl (6.0-8.3); Troponin I High Sensitivity 49.8 pg/ml (0-20)
--- NOTE | 2022-11-25 15:21 | Emergency Department Note ---
Impression & Plan Hyponatremia, Fatigue, Leg pain ED Provider Note INFORMANT: Patient ED PROVIDER(S): Arron Gonzalez DO CHIEF COMPLAINT: Low sodium, fatigue, leg pain PLAN: Disposition: Admission Outpatient prescription management: none Discussion with: I spoke with the hospitalist, who will see the patient for ad mission/observation and further evaluation and consultation. MEDICAL DECISION MAKING: This is a 87-year-old male who presents to the ED with a chief complaint of low sodium. The patient states that he has been feeling fatigued recently. He also went on a trip/flight to [facility] recently. He was complaining of some leg pain primarily on the right But also the left. The patient has a blood work earlier today that showed his sodium was 120. He was sent here for evaluation. He did not see a provider. The patient is on a diuretic. He appears to chronically be on Eliquis for A-fib. He follows with Dr. Overton. The patient's vital signs today were normal. Physical exam reveals no obvious abnormalities. Mucous membranes are moist. Skin turgor is normal. Heart is regular rate and rhythm. Abdomen soft nontender. He does have some mild right calf tenderness. Labs did not show DVT. CT scan of the chest shows bilateral pleural effusions. Chest x-ray shows bilateral pleural effusions and infiltrates in the lower lobes. No clear pneumonia. Patient sodium is 117. CBC did not show leukocytosis or anemia. Chloride was 85. Creatinine is 1.2. Troponin is 49.8. He denies any chest pains. EKG shows a sinus rhythm with a rate of 63 with low voltage. No ischemic changes. The patient was told the results of the test. He was given 50 mL of hypertonic saline. He will be seen by the hospitalist for further evaluation and care Triage Nursing notes reviewed. Vital Signs: reviewed Prior /Outside records reviewed: none Differential diagnosis: Differential includes acute coronary syndrome, myocardial infarction, CVA, TIA, anemia, infection, pneumonia, UTI, pyelonephritis, poor nutrition, dehydration, electrolyte disturbance,hypoglycemia. Diagnostics, as interpreted by me: 12 lead ECG: Sinus rhythm rate of 63. Low voltage. No ST elevation. No PVCs. Cardiac Monitoring ordered: Sinus rhythm in the 60s. Medical decision rules: [none] Imaging studies: Chest x-ray: Bilateral pleural effusions with some haziness in the bilateral lower lobes. CT scan of the chest: Bilateral pleural effusions. Ultrasound of the bilateral legs: No DVT Procedures: none. Critical care: I have personally spent 30 minutes of critical care time in the direct management of this patient. This includes bedside care, interpretation of diagnostic studies, and testing, discussion with consultants, patient, and family members, and other required patient management activities. This 30 minutes is in excess of all separately billable procedures. HPI: See MDM above. PAST MEDICAL HISTORY: See Below PAST SURGICAL HISTORY: See Below SOCIAL HISTORY: See Below HOME MEDICATIONS:See Below ALLERGIES: See Below VITALS: See Below PHYSICAL EXAMINATION: See MDM for positive findings otherwise unremarkable. CONSTITUTIONAL/VITAL SIGNS: Reviewed GENERAL:done as appropriate INTEGUMENTARY: done as appropriate HEAD: done as appropriate EYES: done as appropriate RESPIRATORY: done as appropriate CARDIOVASCULAR:done as appropriate GI/ABDOMEN:done as appropriate EXTREMITIES: done as appropriate NEUROLOGICAL: done as appropriate PSYCHIATRIC:done as appropriate MUSCULOSKELETAL:done as appropriate TRIAGE NURSING DOCUMENTATION REVIEWED. Past Med/Surg History Medical History Enlarged prostate Melanoma Social History Smoking Status: Never smoker Hx Alcohol Use: Yes Alcohol type: wine Hx Substance Use: No Preferred Language: Uzbek Communication Ability: Effective Gage Designer Required: No Beliefs That Will Affect Care: None Current Living Situation: Spouse Current Living Situation Comment: Apartment Feels Safe at Home: Yes Assistive Devices: None Allergies Allergies Allergy/AdvReac Type Severity Reaction Status Date / Time No Known Allergies Allergy Verified 07/21/22 00:50 Home Meds Home Medications Medication Instructions Recorded Confirmed atorvastatin 20 mg tablet 20 mg PO 01/19/19 07/21/22 coenzyme Q10 100 mg capsule 100 mg PO [facility] 01/19/19 07/21/22 (CoQ-10) lansoprazole 30 mg capsule,delayed 30 mg PO [facility] 01/19/19 07/21/22 release levothyroxine 88 mcg tablet 88 mcg PO [facility] 01/19/19 07/21/22 tamsulosin 0.4 mg capsule 0.8 mg PO 01/19/19 07/21/22 vit C 250 mg-vit E 90 mg-zinc 40 1 tab PO [facility] 01/19/19 07/21/22 mg-copper 1 pv-wftojv-jfmgnn capsule (PreserVision AREDS-2) Lactobacil.acidophilus-Bifido.animalis 1 cap PO HS 07/21/22 07/21/22 5 billion cell sprinkle capsule (Probiotic) amiodarone 200 mg tablet 200 mg PO BID 07/21/22 07/21/22 apixaban 2.5 mg tablet (Eliquis) 2.5 mg PO BID 07/21/22 07/21/22 bumetanide 0.5 mg tablet 0.5 mg PO QAM 07/21/22 07/21/22 cyanocobalamin (vitamin B-12) 1,000 mcg PO QAM 07/21/22 07/21/22 1,000 mcg tablet (Vitamin B-12) docusate sodium 100 mg capsule 100 mg PO HS 07/21/22 07/21/22 (Stool Softener) empagliflozin 10 mg tablet 5 mg PO DAILY 07/21/22 07/21/22 (Jardiance) Results & Data (ED) Vital Signs Vital Signs - 24 hr 11/25/22 14:07 11/25/22 15:43 11/25/22 15:44 Temperature 36.5 C Temperature Source Temporal Artery Scan Pulse Rate 72 67 Pulse Rate [Apical] 65 Pulse Rate from SpO2 Sensor Pulse Rhythm [Apical] Regular Respiratory Rate 20 17 Respiratory Effort / Characteristics Non-Labored Spontaneous Non-Labored Respiratory Depth Normal Normal Blood Pressure 128/70 Blood Pressure [Right Arm] 130/73 Blood Pressure Mean 89 Blood Pressure Mean [Right Arm] 92 Pulse Oximetry 98 95 Oxygen Delivery Method Room Air Room Air Sepsis Recent Fever Within 48 Hours No Sepsis New/Unexplained Change in Mental Status N/A Sepsis Action Taken by Nursing No Action Required 11/25/22 16:18 11/25/22 15:22 11/25/22 15:43 Temperature Temperature Source Pulse Rate 65 Pulse Rate [Apical] 67 Pulse Rate from SpO2 Sensor Pulse Rhythm [Apical] Respiratory Rate 18 19 Respiratory Effort / Characteristics Respiratory Depth Blood Pressure 137/68 131/71 Blood Pressure [Right Arm] 131/74 Blood Pressure Mean 99 85 Blood Pressure Mean [Right Arm] 93 Pulse Oximetry 96 95 Oxygen Delivery Method Sepsis Recent Fever Within 48 Hours Sepsis New/Unexplained Change in Mental Status Sepsis Action Taken by Nursing 11/25/22 15:45 11/25/22 15:45 11/25/22 16:00 Temperature Temperature Source Pulse Rate 65 Pulse Rate [Apical] Pulse Rate from SpO2 Sensor 66 Pulse Rhythm [Apical] Respiratory Rate 14 Respiratory Effort / Characteristics Respiratory Depth Blood Pressure 130/73 126/74 Blood Pressure [Right Arm] Blood Pressure Mean 85 103 Blood Pressure Mean [Right Arm] Pulse Oximetry 96 Oxygen Delivery Method Sepsis Recent Fever Within 48 Hours Sepsis New/Unexplained Change in Mental Status Sepsis Action Taken by Nursing 11/25/22 16:00 11/25/22 16:15 11/25/22 16:15 Temperature Temperature Source Pulse Rate 66 65 Pulse Rate [Apical] Pulse Rate from SpO2 Sensor 66 65 Pulse Rhythm [Apical] Respiratory Rate 13 23 Respiratory Effort / Characteristics Respiratory Depth Blood Pressure 131/74 Blood Pressure [Right Arm] Blood Pressure Mean 82 Blood Pressure Mean [Right Arm] Pulse Oximetry 96 96 Oxygen Delivery Method Sepsis Recent Fever Within 48 Hours Sepsis New/Unexplained Change in Mental Status Sepsis Action Taken by Nursing 11/25/22 16:30 11/25/22 16:31 11/25/22 16:31 Temperature Temperature Source Pulse Rate 94 H 65 Pulse Rate [Apical] Pulse Rate from SpO2 Sensor 67 65 Pulse Rhythm [Apical] Respiratory Rate 14 15 Respiratory Effort / Characteristics Respiratory Depth Blood Pressure 144/89 H Blood Pressure [Right Arm] Blood Pressure Mean 108 Blood Pressure Mean [Right Arm] Pulse Oximetry 95 96 Oxygen Delivery Method Sepsis Recent Fever Within 48 Hours Sepsis New/Unexplained Change in Mental Status Sepsis Action Taken by Nursing 11/25/22 16:51 11/25/22 16:51 Temperature Temperature Source Pulse Rate Pulse Rate [Apical] Pulse Rate from SpO2 Sensor 64 Pulse Rhythm [Apical] Respiratory Rate Respiratory Effort / Characteristics Respiratory Depth Blood Pressure 131/71 Blood Pressure [Right Arm] Blood Pressure Mean 106 Blood Pressure Mean [Right Arm] Pulse Oximetry 97 Oxygen Delivery Method Sepsis Recent Fever Within 48 Hours Sepsis New/Unexplained Change in Mental Status Sepsis Action Taken by Nursing Laboratory Data 11/25/22 14:21 11/25/22 14:21 Lab Results 11/25/22 11/25/22 11/25/22 Range/Units 14:21 14:21 14:21 WBC 6.46 (4.8-10.8) K/ul RBC 4.11 L (4.70-6.10) M/uL Hgb 13.4 L (14.0-18.0) g/dl Hct 38.0 L (42.0-52.0) % MCV 92.5 (80.0-100.0) fL MCH 32.6 (25.0-34.0) pg MCHC 35.3 (32.0-36.0) g/dL RDW Std Deviation 50.4 H (36.4-46.3) fL RDW Coeff of [place] 15.0 H (11.5-14.5) % Plt Count 266 (130-400) K/uL MPV 9.2 L (9.4-12.4) fL Immature Gran % (Auto) 0.2 % Neut % (Auto) 80.7 % Lymph % (Auto) 7.7 % [place] % (Auto) 10.4 % Eos % (Auto) 0.5 % Baso % (Auto) 0.5 % Neut # (Auto) 5.22 (1.40-6.50) K/uL Lymph # (Auto) 0.50 L (1.2-3.4) K/uL [place] # (Auto) 0.67 H (0.11-0.59) K/uL Eos # (Auto) 0.03 (0-0.50) K/uL Baso # (Auto) 0.03 (0-0.2) K/uL Immature Gran # (Auto) 0.01 (0.01-0.20) K/uL PT Cancelled INR Cancelled APTT Cancelled PTT Ratio Cancelled Sodium 117 L* (136-145) mmol/L Potassium TNP Chloride 85 L (98-107) mmol/L Carbon Dioxide 25 (21-32) mmol/L Anion Gap 7 (3-11) BUN 23 (6-23) mg/dl Creatinine 1.20 (0.6-1.4) mg/dl Est Cr Clr Drug Dosing 43.9 ml/min Est GFR ( Amer) 62.2 ml/min Est GFR (Non-Af Amer) 53.7 ml/min BUN/Creatinine Ratio 19.2 (10-20) Glucose 112 H (70-99(Fasting)) mg/dl Calcium 8.7 (8.6-10.3) mg/dl Total Bilirubin 0.6 (0.2-1.0) mg/dl AST TNP ALT 18 (7-52) U/L Alkaline Phosphatase 109 H (34-104) U/L Total Creatine Kinase (30-223) U/L Troponin I High Sens 49.8 H (0-20) pg/ml Total Protein 7.5 (6.0-8.3) gm/dl Albumin 4.1 (3.4-5.0) gm/dl Globulin 3.4 (2.5-4.0) gm/dl Albumin/Globulin Ratio 1.2 (0.9-2) TSH (0.300-4.500) uIu/ml Free T4 (0.61-1.60) ng/dl Urine Color Urine Appearance (Clear) Urine pH (4.5-7.5) Ur Specific [place] (1.000-1.030) Urine Protein (Negative) Urine Glucose (UA) (Negative) Urine Ketones (Negative) Urine Blood (Negative) Urine Nitrite (Negative) Urine Bilirubin (Negative) Urine Urobilinogen (Negative) Ur Leukocyte Esterase (Negative) Urine Osmolality (500-800) mOsm/kg Urine Sodium mmol/L Urine Potassium mmol/L Urine Chloride mmol/L SARS-CoV-2, RNA, NAAT (NEGATIVE) 11/25/22 11/25/22 11/25/22 Range/Units 15:19 15:25 15:28 WBC (4.8-10.8) K/ul RBC (4.70-6.10) M/uL Hgb (14.0-18.0) g/dl Hct (42.0-52.0) % MCV (80.0-100.0) fL MCH (25.0-34.0) pg MCHC (32.0-36.0) g/dL RDW Std Deviation (36.4-46.3) fL RDW Coeff of [place] (11.5-14.5) % Plt Count (130-400) K/uL MPV (9.4-12.4) fL Immature Gran % (Auto) % Neut % (Auto) % Lymph % (Auto) % [place] % (Auto) % Eos % (Auto) % Baso % (Auto) % Neut # (Auto) (1.40-6.50) K/uL Lymph # (Auto) (1.2-3.4) K/uL [place] # (Auto) (0.11-0.59) K/uL Eos # (Auto) (0-0.50) K/uL Baso # (Auto) (0-0.2) K/uL Immature Gran # (Auto) (0.01-0.20) K/uL PT INR APTT PTT Ratio Sodium (136-145) mmol/L Potassium Chloride (98-107) mmol/L Carbon Dioxide (21-32) mmol/L Anion Gap (3-11) BUN (6-23) mg/dl Creatinine (0.6-1.4) mg/dl Est Cr Clr Drug Dosing ml/min Est GFR ( Amer) ml/min Est GFR (Non-Af Amer) ml/min BUN/Creatinine Ratio (10-20) Glucose (70-99(Fasting)) mg/dl Calcium (8.6-10.3) mg/dl Total Bilirubin (0.2-1.0) mg/dl AST ALT (7-52) U/L Alkaline Phosphatase (34-104) U/L Total Creatine Kinase 93 (30-223) U/L Troponin I High Sens 45.3 H (0-20) pg/ml Total Protein (6.0-8.3) gm/dl Albumin (3.4-5.0) gm/dl Globulin (2.5-4.0) gm/dl Albumin/Globulin Ratio (0.9-2) TSH (0.300-4.500) uIu/ml Free T4 (0.61-1.60) ng/dl Urine Color Yellow Urine Appearance Clear (Clear) Urine pH 5.5 (4.5-7.5) Ur Specific [place] 1.014 (1.000-1.030) Urine Protein Negative (Negative) Urine Glucose (UA) 3+ H (Negative) Urine Ketones Negative (Negative) Urine Blood Negative (Negative) Urine Nitrite Negative (Negative) Urine Bilirubin Negative (Negative) Urine Urobilinogen Negative (Negative) Ur Leukocyte Esterase Negative (Negative) Urine Osmolality (500-800) mOsm/kg Urine Sodium mmol/L Urine Potassium mmol/L Urine Chloride mmol/L SARS-CoV-2, RNA, NAAT NEGATIVE (NEGATIVE) 11/25/22 11/25/22 11/25/22 Range/Units 15:28 15:28 15:28 WBC (4.8-10.8) K/ul RBC (4.70-6.10) M/uL Hgb (14.0-18.0) g/dl Hct (42.0-52.0) % MCV (80.0-100.0) fL MCH (25.0-34.0) pg MCHC (32.0-36.0) g/dL RDW Std Deviation (36.4-46.3) fL RDW Coeff of [place] (11.5-14.5) % Plt Count (130-400) K/uL MPV (9.4-12.4) fL Immature Gran % (Auto) % Neut % (Auto) % Lymph % (Auto) % [place] % (Auto) % Eos % (Auto) % Baso % (Auto) % Neut # (Auto) (1.40-6.50) K/uL Lymph # (Auto) (1.2-3.4) K/uL [place] # (Auto) (0.11-0.59) K/uL Eos # (Auto) (0-0.50) K/uL Baso # (Auto) (0-0.2) K/uL Immature Gran # (Auto) (0.01-0.20) K/uL PT 12.6 H INR 1.2 H APTT 32.0 H PTT Ratio 1.1 Sodium (136-145) mmol/L Potassium 4.7 Chloride (98-107) mmol/L Carbon Dioxide (21-32) mmol/L Anion Gap (3-11) BUN (6-23) mg/dl Creatinine (0.6-1.4) mg/dl Est Cr Clr Drug Dosing ml/min Est GFR ( Amer) ml/min Est GFR (Non-Af Amer) ml/min BUN/Creatinine Ratio (10-20) Glucose (70-99(Fasting)) mg/dl Calcium (8.6-10.3) mg/dl Total Bilirubin (0.2-1.0) mg/dl AST 23 ALT (7-52) U/L Alkaline Phosphatase (34-104) U/L Total Creatine Kinase (30-223) U/L Troponin I High Sens (0-20) pg/ml Total Protein (6.0-8.3) gm/dl Albumin (3.4-5.0) gm/dl Globulin (2.5-4.0) gm/dl Albumin/Globulin Ratio (0.9-2) TSH 19.884 H (0.300-4.500) uIu/ml Free T4 0.73 (0.61-1.60) ng/dl Urine Color Urine Appearance (Clear) Urine pH (4.5-7.5) Ur Specific [place] (1.000-1.030) Urine Protein (Negative) Urine Glucose (UA) (Negative) Urine Ketones (Negative) Urine Blood (Negative) Urine Nitrite (Negative) Urine Bilirubin (Negative) Urine Urobilinogen (Negative) Ur Leukocyte Esterase (Negative) Urine Osmolality (500-800) mOsm/kg Urine Sodium mmol/L Urine Potassium mmol/L Urine Chloride mmol/L SARS-CoV-2, RNA, NAAT (NEGATIVE) 11/25/22 11/25/22 Range/Units 15:33 15:53 WBC (4.8-10.8) K/ul RBC (4.70-6.10) M/uL Hgb (14.0-18.0) g/dl Hct (42.0-52.0) % MCV (80.0-100.0) fL MCH (25.0-34.0) pg MCHC (32.0-36.0) g/dL RDW Std Deviation (36.4-46.3) fL RDW Coeff of [place] (11.5-14.5) % Plt Count (130-400) K/uL MPV (9.4-12.4) fL Immature Gran % (Auto) % Neut % (Auto) % Lymph % (Auto) % [place] % (Auto) % Eos % (Auto) % Baso % (Auto) % Neut # (Auto) (1.40-6.50) K/uL Lymph # (Auto) (1.2-3.4) K/uL [place] # (Auto) (0.11-0.59) K/uL Eos # (Auto) (0-0.50) K/uL Baso # (Auto) (0-0.2) K/uL Immature Gran # (Auto) (0.01-0.20) K/uL PT INR APTT PTT Ratio Sodium (136-145) mmol/L Potassium Chloride (98-107) mmol/L Carbon Dioxide (21-32) mmol/L Anion Gap (3-11) BUN (6-23) mg/dl Creatinine (0.6-1.4) mg/dl Est Cr Clr Drug Dosing ml/min Est GFR ( Amer) ml/min Est GFR (Non-Af Amer) ml/min BUN/Creatinine Ratio (10-20) Glucose (70-99(Fasting)) mg/dl Calcium (8.6-10.3) mg/dl Total Bilirubin (0.2-1.0) mg/dl AST ALT (7-52) U/L Alkaline Phosphatase (34-104) U/L Total Creatine Kinase (30-223) U/L Troponin I High Sens (0-20) pg/ml Total Protein (6.0-8.3) gm/dl Albumin (3.4-5.0) gm/dl Globulin (2.5-4.0) gm/dl Albumin/Globulin Ratio (0.9-2) TSH (0.300-4.500) uIu/ml Free T4 (0.61-1.60) ng/dl Urine Color Urine Appearance (Clear) Urine pH (4.5-7.5) Ur Specific [place] (1.000-1.030) Urine Protein (Negative) Urine Glucose (UA) (Negative) Urine Ketones (Negative) Urine Blood (Negative) Urine Nitrite (Negative) Urine Bilirubin (Negative) Urine Urobilinogen (Negative) Ur Leukocyte Esterase (Negative) Urine Osmolality 314 L (500-800) mOsm/kg Urine Sodium 11 mmol/L Urine Potassium 24.9 mmol/L Urine Chloride < 15 mmol/L SARS-CoV-2, RNA, NAAT (NEGATIVE) Administered Medications Discontinued Medications Sodium Chloride (Hypertonic Saline 3%) 50 mls @ 300 mls/hr IV .Q10M ONE; Protocol Stop: 11/25/22 15:31 Last Infusion: 11/25/22 15:54 Dose: 0 mls/hr Documented By: EMB Co-signed By: EDGARDO Admin: 11/25/22 15:44 Dose: 300 mls/hr Documented By: EMB Co-signed By: GIANNI Ioversol (Optiray 320 500ml) 86 ml IV ONCE ONE Stop: 11/25/22 18:11 Last Admin: 11/25/22 18:10 Dose: 86 ml Documented By: AW Imaging Data Radiologist's Impression: Venous Doppler Study 11/25/22 15:04 BILATERAL LOWER EXTREMITY VENOUS DOPPLER HISTORY: Acute pain and swelling of the lower legs pain, r/o dvt, recent travel COMPARISON STUDY: None. FINDINGS: There is normal compressibility, flow, and augmentation within the bilateral lower extremity deep venous systems. IMPRESSION: No DVT within the right or left lower extremity. ACT 112: Negative or not required by law. Electronically signed by: Branden Knowles M.D. 11/25/2022 5:31 PM Chest X-Ray 11/25/22 15:05 XR chest 1V portable HISTORY: 87 years-old Male weakness acute weakness COMPARISON: 07/20/2022 TECHNIQUE: AP view of the chest FINDINGS: Cardiac silhouette is enlarged. Pulmonary vascular congestion with interstitial coarsening. Left greater than right layering pleural effusions with associated bibasilar consolidation again noted. Degenerative changes of the shoulders and spine. Surgical clips of the neck. IMPRESSION: 1. Cardiomegaly with pulmonary edema. 2. Layering pleural effusions with bibasilar consolidation, left greater than right. ACT 112: Negative or not required by law. The above report was generated using voice recognition software. It may contain grammatical, syntax or spelling errors. Electronically signed by: Branden Knowles M.D. 11/25/2022 4:00 PM Discharge Plan Visit Data Chief Complaint: Abnormal Labs/Diagnostic Testing Stated Complaint: LOW SODIUM LEVEL, FATIGUE, REF BY ED Provider: Arron Gonzalez Discharge Problem: Hyponatremia, Fatigue, Leg pain Forms Stand Alone Forms: My [facility] Prescriptions Prescriptions: No Action atorvastatin 20 mg Tablet 20 mg PO HS levothyroxine 88 mcg Tablet 88 mcg PO QAM tamsulosin 0.4 mg Capsule 0.8 mg PO HS lansoprazole 30 mg Capsule,Delayed Release(/Ec) 30 mg PO QAM coenzyme Q10 [CoQ-10] 100 mg Capsule 100 mg PO QAM PreserVision AREDS-2 [id number] Capsule 1 tab PO QAM amiodarone 200 mg tablet 200 mg PO BID cyanocobalamin (vitamin B-12) [Vitamin B-12] 1,000 mcg Tablet 1,000 mcg PO QAM bumetanide 0.5 mg tablet 0.5 mg PO QAM docusate sodium [Stool Softener] 100 mg Capsule 100 mg PO HS Eliquis 2.5 mg tablet 2.5 mg PO BID Probiotic 5 billion cell Capsule, Sprinkle 1 cap PO HS Jardiance 10 mg tablet 5 mg PO DAILY Rx Instructions: PER PT'S SON "HAD BEEN TAKING 10 MG FOR SOME TIME, BUT WAS TO BE ONLY TAKING 5 MG". Referrals Referrals: Tin Overton [Primary Care Provider] -
[2022-11-25] MEDS ORDERED: STAT IV STA (15:22)
[2022-11-25] MEDS ORDERED: SODIUM CHLORIDE 3 % 50 ML IV ONE (15:22)
[2022-11-25 15:42] LABS: Appearance Urine Clear (Clear); Bilirubin Urine Negative (Negative); Blood Urine Negative (Negative); Color Urine Yellow; Glucose Urine UA 3+ (Negative); Ketones Urine Negative (Negative); Leukocyte Esterase Urine Negative (Negative); Nitrite Urine Negative (Negative); Protein Urine Negative (Negative); Specific Gravity Urine 1.014 (1.000-1.030); Urobilinogen Urine Negative (Negative); pH Urine 5.5 (4.5-7.5)
--- NOTE | 2022-11-25 16:01 | XRay Report ---
XR chest 1V portable HISTORY: 87 years-old Male weakness acute weakness COMPARISON: 07/20/2022 TECHNIQUE: AP view of the chest FINDINGS: Cardiac silhouette is enlarged. Pulmonary vascular congestion with interstitial coarsening. Left grea ter than right layering pleural effusions with associated bibasilar consolidation again noted. Degene rative changes of the shoulders and spine. Surgical clips of the neck. IMPRESSION: 1. Cardiomegaly with pulmonary edema. 2. Layering pleural effusions with bibasilar consolidation, left greater than right. ACT 112: Negative or not required by law. The above report was generated using voice recognition software. It may contain grammatical, syntax o r spelling errors. Electronically signed by: Branden Knowles M.D. 11/25/2022 4:00 PM
[2022-11-25 16:07] LABS: Potassium 4.7 mmol/L (3.5-5.1)
[2022-11-25 16:15] LABS: Troponin I High Sensitivity 45.3 pg/ml (0-20)
[2022-11-25 16:20] LABS: INR 1.2 (0.9-1.1); Partial Thromboplastin Ratio 1.1; Prothrombin Time 12.6 Seconds (9.0-12.0)
[2022-11-25 16:24] LABS: Thyroid Stimulating Hormone 19.884 uIu/ml (0.300-4.500)
[2022-11-25 16:32] LABS: Urine Chloride < 15 mmol/L; Urine Potassium 24.9 mmol/L; Urine Sodium 11 mmol/L
[2022-11-25 16:58] LABS: T4 Free Thyroxine 0.73 ng/dl (0.61-1.60)
--- NOTE | 2022-11-25 17:33 | Ultrasound Report ---
BILATERAL LOWER EXTREMITY VENOUS DOPPLER HISTORY: Acute pain and swelling of the lower legs pain, r/o dvt, recent travel COMPARISON STUDY: None. FINDINGS: There is normal compressibility, flow, and augmentation within the bilateral lower extremit y deep venous systems. IMPRESSION: No DVT within the right or left lower extremity. ACT 112: Negative or not required by law. Electronically signed by: Branden Knowles M.D. 11/25/2022 5:31 PM
[2022-11-25] MEDS ORDERED: OPTIRAY 320 500ml IV ONE (18:10)
--- NOTE | 2022-11-25 18:45 | CT Scan Report ---
CT angio chest PE protocol CT DOSE: 816.95 mGy.cm HISTORY: 87 years-old Male with r/o pneumonia / pe. Acute shortness of breath TECHNIQUE: Multiple CTA images of the chest were obtained after the intravenous administration of 86 ml Optiray. Coronal and sagittal MIPS were obtained from the axial data set and were submitted for r eview. All measurements were obtained according to NASCET criteria. A dose lowering technique was ut ilized adhering to the principles of ALARA. COMPARISON: Chest radiograph of same day FINDINGS: CTA: Moderate cardiomegaly. Small pericardial effusion. Extensive coronary artery calcifications. Atherosc lerosis of the thoracic aorta which is not well-opacified secondary to contrast bolus timing. Apparen t filling defects within segmental and subsegmental pulmonary arterial branches within the left lung base. CT CHEST: Unremarkable thyroid. No lymphadenopathy. Moderate right with moderate to large left pleural effusion s. No pneumothorax. Intralobular septal thickening with bibasilar consolidation, left greater than ri ght. Partial collapse of the left lower lobe. No obstructing mass identified. 3.3 x 2.6 cm left adrenal adenoma with adjacent inflammatory stranding/edema within the retroperitone um. Calcified granulomata in the liver and spleen. Cirrhotic liver. Generalized body wall edema. Dege nerative changes of the shoulders and spine. No acute fracture identified. IMPRESSION: 1. Apparent filling defects within segmental and subsegmental branches of the left lower lobe suggest tanya of shunting/artifact. Pulmonary emboli considered less likely. 2. Cardiomegaly with pulmonary edema, small pericardial, moderate right and moderate to large left pl eural effusions. 3. Asymmetric consolidation of the left lower lobe with partial collapse favors atelectasis. Pneumoni a could appear similarly. 4. No lymphadenopathy. 5. Additional findings as above. ACT 112: Negative or not required by law. The above report was generated using voice recognition software. It may contain grammatical, syntax o r spelling errors. Electronically signed by: Branden Knowles M.D. 11/25/2022 6:43 PM
[2022-11-25] MEDS ORDERED: BUMETANIDE 1 MG in SYRINGE 0 ML IV ONE (19:20)
--- NOTE | 2022-11-25 19:48 | History & Physical Report ---
Date of Service November 25, 2022 Assessment & Plan (1) Hyponatremia: Plan: Surprisingly asymptomatic Suspect a mixed picture"on paper" given his pulmonary edema on chest CT and fairly large effusions, combined with his baseline history of HFpEFit would be consistent with CHF mediated hyponatremia. At the same time, given his abject lack of any respiratory symptoms/exertional symptoms/weight gain, and his urine sodium suggesting some degree of fluid retention, and his urine awesome'swhile somewhat low, probably being inappropriately high given how diluted his bloodstream is, I suspect there is probably some degree of concomitant SIADH, although this is not quite as clear. See #2, 3 below as far as a "breakdown" of each separate possible cause. Follow his sodiums every 4 hours, discussed the case with nighttime coverage to follow and modify if correction is happening too fast/to slow (2) Congestive heart failure: Plan: Chronic longstanding HFpEF, is very good at sodium restriction, previous admission in June his application packager wondered if RVR was putting him into failurehe notes that he has been in sinus, and his watch has not alerted him of atrial fibrillation eitherso I doubt he has been back in fib. Probably repeat echocardiogram, although first will discuss with his primary application packager tomorrow to see if one has been done recently so as to avoid unnecessary duplication. Additional dose of Bumex now and follow. (3) SIADH (syndrome of inappropriate ADH production): Plan: not entirely clear that this is going on, but with euvolemic appearance and totally asymptomatic - i do wonder if he has some degree of SiADH - possibly from recent covid (saw similar not too long ago after recent covid - mild failure severe hyponatremia mild to little symptoms) fluid restrict possibly add salt tabs depending on rate of correction follow Na Q4hrs periodic urine Na/Osm of picture remains mixed/unclear (4) Elevated troponin: Plan: likely wall stretch from HFpEF portion of clinical picture (5) Pleural effusion: Plan: from HFpEF - no sob/no hypoxia - no clear need to tap at this time. follow (6) Filling defect on imaging study: Plan: CT shows filling defects - very small, radiology suspects shunting. already on anticoagulation, no symptoms, doubt VTE. continue eliquis for afib. (7) Hypothyroid: Plan: TSH up, free T4 OK - probably sick euthyroid from above. f/u ~4wks (8) Enlarged prostate: Plan: home meds (9) DVT prophylaxis: Plan: anticoagulated (10) Discharge planning issues: Plan: admit med surg [facility] hospitalists, came from home, anticipate being able to go [place] at [place] probably here for at least a few days due to Na and need for slow correction wishes to be full code History of Present Illness Chief Complaint: Sent for abnormal labs Primary Care Provider: Tin Overton Patient is very pleasant 87-year-old male known to me from an admission in [facility] who presents for abnormal labs. He notes that he was in his baseline state of health and had absolutely nothing that he felt like was wrong with him but was due for routine labs just basically to his knowledge because of his HFpEF and chronic diuretic therapy. He was found to have a sodium of about 120 and sent to the ER. He had COVID about 2 weeks ago but really did not seem to have been that sick and has recovered totally He was up in [place] a few weeks ago as well and had no real symptoms. He denies any recent weight gain shortness of breath dyspnea on exertion chest pain or any other respiratory symptoms. He notes he has been walking around just fine. He continues with a very strict sodium restriction (whenever I saw him in June he was extremely astute at recognizing and restricting sodium in his diet) and notes that nothing has changed with his diet. Essentially he feels like his normal selfand notes that if he was not told about abnormal labs he would not feel bad at all. Allergies Allergy/AdvReac Type Severity Reaction Status Date / Time No Known Allergies Allergy Verified 11/25/22 19:26 Home Medications Medication Instructions Recorded Confirmed Type atorvastatin 20 mg tablet 20 mg PO 01/19/19 11/25/22 History coenzyme Q10 100 mg capsule 100 mg PO [facility] 01/19/19 11/25/22 History (CoQ-10) lansoprazole 30 mg capsule,delayed 30 mg PO [facility] 01/19/19 07/21/22 History release levothyroxine 88 mcg tablet 88 mcg PO [facility] 01/19/19 07/21/22 History tamsulosin 0.4 mg capsule 0.8 mg PO 01/19/19 07/21/22 History vit C 250 mg-vit E 90 mg-zinc 40 1 tab PO [facility] 01/19/19 07/21/22 History mg-copper 1 es-ykmwxy-ikepys capsule (PreserVision AREDS-2) Lactobacil.acidophilus-Bifido.animalis 1 cap PO HS 07/21/22 07/21/22 History 5 billion cell sprinkle capsule (Probiotic) amiodarone 200 mg tablet 200 mg PO BID 07/21/22 11/25/22 History apixaban 2.5 mg tablet (Eliquis) 2.5 mg PO BID 07/21/22 07/21/22 History bumetanide 0.5 mg tablet 0.5 mg PO QAM 07/21/22 11/25/22 History cyanocobalamin (vitamin B-12) 1,000 mcg PO QAM 07/21/22 11/25/22 History 1,000 mcg tablet (Vitamin B-12) docusate sodium 100 mg capsule 100 mg PO HS 07/21/22 11/25/22 History (Stool Softener) empagliflozin 10 mg tablet 5 mg PO DAILY 07/21/22 07/21/22 History (Jardiance) Past Med/Surg History Medical History Enlarged prostate GERD (gastroesophageal reflux disease) Hypothyroid Melanoma Sleep apnea Social History Smoking Status: Never smoker Hx Alcohol Use: Yes Alcohol type: wine Hx Substance Use: No Preferred Language: Pakistani Communication Ability: Effective [employer]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 HEENT normocephalic atraumatic mucous membranes moist. Cardio regular without rubs murmurs gallops. Lungs somewhat quiet throughout but overall clear no rales rhonchi or wheezes good effort no accessory muscle use. Abdomen is soft nondistended nontender no masses organomegaly. Extremities without cyanosis or clubbing may be trace edema at worst no calf tenderness. Skin shows no rashes no pallor or icterus. Neuro shows cranial nerves II through XII are grossly intact gross motor and sensory intact. Mental status shows good recent and remote recall normal mood and affect good judgment and insight CMP, CBC, TSH, free T4, troponin, urinalysis, urine sodium, urine osmolality noted. Chest x-ray and CT angio noted. Films also personally reviewed. Lower extremity venous Dopplers negative and noted Results & Data Results & Data Vital Signs (Past 12 Hours) Vital Signs Temp Pulse Pulse Resp BP BP Pulse Ox 11/25/22 16:51 97 11/25/22 16:51 131/71 11/25/22 16:31 65 15 96 11/25/22 16:31 144/89 H 11/25/22 16:30 94 H 14 95 11/25/22 16:15 65 23 96 11/25/22 16:15 131/74 11/25/22 16:00 66 13 96 11/25/22 16:00 126/74 11/25/22 15:45 65 14 96 11/25/22 15:45 130/73 11/25/22 15:43 131/71 11/25/22 15:22 65 19 137/68 95 11/25/22 16:18 67 18 131/74 96 11/25/22 15:44 65 17 130/73 95 11/25/22 15:43 67 11/25/22 14:07 97.7 F 72 20 128/70 98 O2 Del Method 11/25/22 16:51 11/25/22 16:51 11/25/22 16:31 11/25/22 16:31 11/25/22 16:30 11/25/22 16:15 11/25/22 16:15 11/25/22 16:00 11/25/22 16:00 11/25/22 15:45 11/25/22 15:45 11/25/22 15:43 11/25/22 15:22 11/25/22 16:18 11/25/22 15:44 Room Air 11/25/22 15:43 11/25/22 14:07 Room Air Code Status & VTE Plan VTE Prophylaxis Plan VTE Prophylaxis will be ordered: Yes PG Care Time/CCT Total # of Minutes Spent Total Time Spent with Patient: Total time spent is greater than 50% in coordination of care (as documented) at patient's floor/unit and/or counseling patient: Coding Level of Care Code 59911 INT INP/OBS CARE MIN Diagnoses Hyponatremia E87.1 Congestive heart failure I50.9 SIADH (syndrome of inappropriate ADH production) E22.2 Elevated troponin R77.8 Pleural effusion J90 Filling defect on imaging study R93.89 Hypothyroid E03.9 Enlarged prostate N40.0 DVT prophylaxis Z29.9 Discharge planning issues Z02.9
[2022-11-25 20:20] LABS: Calcium 8.9 mg/dl (8.6-10.3); Creatinine Clr Calc Pharmacy 47.5 ml/min; Est GFR (African American) 68.3 ml/min; Potassium 4.1 mmol/L (3.5-5.1)
[2022-11-25] MEDS ORDERED: ALUMINUM/MAGNESIUM SUSP 30 ML UDC PO PRN (21:15)
[2022-11-25] MEDS ORDERED: ONDANSETRON INJ 2 MG/ML 2 ML VIAL IV PRN (21:15)
[2022-11-25] MEDS ORDERED: ACETAMINOPHEN 325 MG TAB PO PRN (21:15)
[2022-11-25] MEDS ORDERED: MAGNESIUM HYDROXIDE SUSP 30 ML UDC PO PRN (21:15)
[2022-11-25] MEDS: ATORVASTATIN 20 MG TAB PO SCH (22:01)
[2022-11-25] MEDS: DOCUSATE SODIUM 100 MG CAP PO SCH (22:01)
[2022-11-25] MEDS: TAMSULOSIN HCL 0.4 MG CAP PO SCH (22:01)
[2022-11-25] MEDS: AMIODARONE 200 MG TAB PO SCH (22:02)
[2022-11-25] MEDS: APIXABAN 2.5 MG TAB PO SCH (22:02)
[2022-11-25] MEDS: ADVANCED PROBIOTIC 1250 MG CAPSULE PO SCH (22:02)
[2022-11-25 22:26] LABS: BUN Creatinine Ratio 16.5 (10-20); Calcium 8.9 mg/dl (8.6-10.3); Creatinine Clr Calc Pharmacy 43.6 ml/min; Est GFR (African American) 61.6 ml/min; Est GFR (Non-African American) 53.1 ml/min; Potassium 4.1 mmol/L (3.5-5.1)
[2022-11-26 01:50] LABS: BUN Creatinine Ratio 19.1 (10-20); Calcium 8.5 mg/dl (8.6-10.3); Creatinine Clr Calc Pharmacy 45.8 ml/min; Est GFR (African American) 65.5 ml/min; Est GFR (Non-African American) 56.5 ml/min
[2022-11-26] MEDS: LEVOTHYROXINE SODIUM 88 MCG TABLET PO SCH (05:38)
[2022-11-26 06:14] LABS: BUN Creatinine Ratio 18.9 (10-20); Calcium 8.5 mg/dl (8.6-10.3); Creatinine Clr Calc Pharmacy 47.5 ml/min; Est GFR (African American) 68.3 ml/min; Potassium 4.1 mmol/L (3.5-5.1)
[2022-11-26] MEDS ORDERED: NON-FORMULARY MEDICATION (Coenzyme Q10 [Coq-10] 100 mg Capsule) PO SCH (09:00)
[2022-11-26] MEDS: EMPAGLIFLOZIN 10 MG TAB PO SCH (09:05)
[2022-11-26] MEDS: LANSOPRAZOLE 30 MG SOLTAB PO SCH (09:06)
[2022-11-26] MEDS: AMIODARONE 200 MG TAB PO SCH ×2 (09:06→20:01)
[2022-11-26] MEDS: CYANOCOBALAMIN (B-12) 500 MCG TABLET PO SCH (09:06)
[2022-11-26] MEDS: BUMETANIDE 1 MG TAB PO SCH (09:06)
[2022-11-26] MEDS: APIXABAN 2.5 MG TAB PO SCH ×2 (09:06→20:01)
[2022-11-26] MEDS: CEROVITE ADV FORMULA TAB PO SCH (09:06)
[2022-11-26 10:25] LABS: Potassium 4.6 mmol/L (3.5-5.1)
[2022-11-26 10:30] LABS: BUN Creatinine Ratio 16.4 (10-20); Creatinine Clr Calc Pharmacy 43.2 ml/min; Est GFR (Non-African American) 52.6 ml/min
--- NOTE | 2022-11-26 14:22 | Medical Student Progress Note ---
Date of Service November 26, 2022 Assessment & Plan (1) Hyponatremia: Plan: Deion is an 87y/o male patient with a past medical history of HFpRF, GERD, SELENE, and hypothyroidism who presented to the ED yesterday for low sodium level, 120, on outpatient labs. It seems as though this patient is presenting with a mixed picture. Suspect there may be some component of chronic decompensation of HFpEF given patient's lack of symptoms, and presence of pulmonary edema and bilateral pleural effusions on chest CT--suggestive of CHF-mediated hyponatremia. Additionally, patient's urine sodium level being on the lower side of normal suggests a degree of fluid retention that is possibly due to SIADH. See #2 and #3 below for a "breakdown" of each separate possible cause. Follow sodium level every 4 hours and modify if correction is happening too fast or too slow. (2) Congestive heart failure: Plan: Patient has a history of chronic longstanding HFpEF. Patient is very strict with his salt intake. At a previous admission in June, his operational trainer wondered if RVR was putting him into failurehe notes that he has been in sinus, and his watch has not alerted him of atrial fibrillation so it is unlikely patient is back in AFib. -Continue Bumex. -Speak to patient's operational trainer about increasing dose of bumex once discharged. Suspicious patient may need an increased dose since patient presents asym ptomatically with pulmonary edema and bilateral pleural effusions on chest imaging. Suggests this could be a problem that was progressing slowly over time. -Speak to patient's operational trainer about obtaining a repeat echocardiogram. -Continue salt restricted diet. Unlikely patient could exacerbate hyponatremia by limiting dietary salt intake. Sodium level has been correcting as expected thus far. (3) SIADH (syndrome of inappropriate ADH production): Plan: Thinking SIADH could be a component of the hyponatremia given patient's urine sodium level that is on the lower end of normal--suggestive of fluid retention. -Restrict fluids. -Add salt tabs depending on rate of correction. -Trend sodium level q4hrs. -Periodic urine sodium and urine osmolality levels. (4) Elevated troponin: Plan: This is likely due to wall stretch of the heart due to patients known history of HFpEF. (5) Pleural effusion: Plan: This is likely due to patient's known history of HFpEF. Patient denies shortness of breath and is sating well on room air. -No clear need to tap at this time. -Continue following. (6) Filling defect on imaging study: Plan: CT shows filling defects - very small, radiology suspects shunting. Patient is on anticoagulation and not symptomatic, so doubtful of a VTE. -Continue Eliquis for Afib. (7) Hypothyroid: Plan: TSH is up and free T4 is OK, probably sick euthyroid from above. -Follow up in ~4wks. (8) Enlarged prostate: Plan: home meds (9) DVT prophylaxis: Plan: -Anticoagulated, on Eliquis. (10) Discharge planning issues: Plan: FENGI: Salt restricted diet. Fluids restricted. DVT Prophylaxis: anticoagulated, on Eliquis. Dispo: Medsurg. Anticipate being able to go home at discharge once sodium has corrected appropriately. Code Status: Full code. Admission and Anticipated Discharge Date Admission Date: November 25, 2022 Supervising Attestation I personally examined the patient and verified all aguirre points of history and exam, discussed case, and agree with decision making with Fili EL and Dr Arita Feels good. No complaints. Discussed labs. Vitals noted, in general he is awake and alert pleasant no distress. HEENT normocephalic atraumatic mucous membranes moist. Breathing unlabored no accessory muscle use good effort. Skin shows no rashes no pallor or icterus. Serial basic metabolic panels reviewed. Hyponatremiaprobably both chronic HFpEF and probably a degree of SIADHboth improving. Discussed to work with cardiology as he may need a bit more diureticwe will hold off on more given that his baseline has been a little bit tough to determine. Gentle fluid restriction (eased up to 2 L) otherwise as above. Gino Albarran is an 87y/o male patient with a past medical history of HFpRF, GERD, SELENE, hypothyroidism, and AFib who presented to the ED yesterday for abnormal outpatient labs. Patient stated he was having back pain and calf pain which prompted him to call his operational trainer, Dr. Chávez. Various labs were ordered and found to reveal low sodium level, 120. Patient was instructed to go to the hospital. Chest x-ray and Chest Ct revealed small bilateral pleural effusions. Venous doppler of the right lower extremity suggested no evidence of DVT. Patient was given 50ml of hypertonic saline in the ED. Today the patient states he feels well. Patient denies fatigue, chest pains, and shortness of breath. Patient endorses he adheres to a strict salt restricted diet at home. Review of Systems Constitutional: No fever, no chills, no fatigue. Respiratory: No shortness of breath, no cough, no wheezing. Cardiovascular: Additional Comments: No chest pain, no palpitations. Gastrointestinal: No abdominal pain, no nausea, no vomiting, no constipation, no diarrhea. Physical Exam Constitutional: Alert and oriented, in no acute distress. ENMT: HEENT normocephalic atraumatic. Mucous membranes moist. Respiratory: Lungs clear to auscultation. Diminished breath sounds throughout, more so in left lung. No rales, rhonchi, or wheezes. Cardiovascular: Regular rate and rhythm. No murmurs, rubs, or gallops. No peripheral edema. No tenderness to palpation over calf muscles bilaterally. Neurologic: CN II-XII intact. No focal neurologic deficits. Results & Data Vital Signs (Past 12 Hours) Vital Signs Temp Pulse Resp BP Pulse Ox O2 Del Method 11/26/22 09:04 71 109/63 11/26/22 07:47 36.5 C 66 16 113/51 L 95 Room Air
[2022-11-26 15:10] LABS: Calcium 8.8 mg/dl (8.6-10.3); Potassium 4.6 mmol/L (3.5-5.1)
[2022-11-26 15:15] LABS: BUN Creatinine Ratio 15.3 (10-20); Creatinine Clr Calc Pharmacy 38.5 ml/min; Est GFR (Non-African American) 45.7 ml/min
[2022-11-26 17:22] LABS: Calcium 8.9 mg/dl (8.6-10.3); Potassium 4.4 mmol/L (3.5-5.1)
[2022-11-26 17:28] LABS: BUN Creatinine Ratio 17.3 (10-20); Creatinine Clr Calc Pharmacy 37.9 ml/min; Est GFR (African American) 52.1 ml/min; Est GFR (Non-African American) 44.9 ml/min
--- NOTE | 2022-11-26 17:30 | Billing Data ---
Date of Service November 26, 2022 Coding Level of Care Code 14226 SUB INP/OBS CARE MIN
[2022-11-26] MEDS: ATORVASTATIN 20 MG TAB PO SCH (20:01)
[2022-11-26] MEDS: TAMSULOSIN HCL 0.4 MG CAP PO SCH (20:01)
[2022-11-26] MEDS: DOCUSATE SODIUM 100 MG CAP PO SCH (20:01)
[2022-11-26] MEDS: ADVANCED PROBIOTIC 1250 MG CAPSULE PO SCH (20:01)
[2022-11-26 22:31] LABS: Calcium 8.9 mg/dl (8.6-10.3); Potassium 4.5 mmol/L (3.5-5.1)
[2022-11-26 22:37] LABS: BUN Creatinine Ratio 15.4 (10-20); Creatinine Clr Calc Pharmacy 32.5 ml/min; Est GFR (African American) 43.3 ml/min; Est GFR (Non-African American) 37.3 ml/min
[2022-11-27] MEDS: LEVOTHYROXINE SODIUM 88 MCG TABLET PO SCH (05:52)
--- NOTE | 2022-11-27 06:05 | Electrocardiogram Report ---
Test Reason : Blood Pressure : / mmHG Vent. Rate : 063 BPM Atrial Rate : 063 BPM P-R Int : 216 ms QRS Dur : 136 ms QT Int : 420 ms P-R-T Axes : -23 -65 025 degrees QTc Int : 429 ms Sinus rhythm with 1st degree A-V block Left axis deviation Low voltage QRS Right bundle branch block Inferior infarct (cited on or before 21-JUL-2022) Anterolateral infarct (cited on or before 21-JUL-2022) Abnormal ECG When compared with ECG of 21-JUL-2022 00:10, Sinus rhythm has replaced Atrial fibrillation Confirmed by Dell Simmons ([id number]) on 11/27/2022 6:05:04 AM Referred By: Rene Chávez Confirmed By:Dell Simmons
[2022-11-27 07:00] LABS: BUN Creatinine Ratio 15.8 (10-20); Calcium 8.6 mg/dl (8.6-10.3); Creatinine Clr Calc Pharmacy 37.9 ml/min; Est GFR (African American) 52.1 ml/min; Est GFR (Non-African American) 44.9 ml/min; Potassium 4.3 mmol/L (3.5-5.1)
[2022-11-27] MEDS: BUMETANIDE 1 MG TAB PO SCH (08:36)
[2022-11-27] MEDS: AMIODARONE 200 MG TAB PO SCH (08:36)
[2022-11-27] MEDS: CYANOCOBALAMIN (B-12) 500 MCG TABLET PO SCH (08:36)
[2022-11-27] MEDS: LANSOPRAZOLE 30 MG SOLTAB PO SCH (08:36)
[2022-11-27] MEDS: CEROVITE ADV FORMULA TAB PO SCH (08:36)
[2022-11-27] MEDS: APIXABAN 2.5 MG TAB PO SCH (08:36)
[2022-11-27] MEDS: EMPAGLIFLOZIN 10 MG TAB PO SCH (08:36)
--- NOTE | 2022-11-27 18:19 | Discharge Summary ---
Date of Service November 27, 2022 Admission HPI Per Admitting Provider Patient is very pleasant 87-year-old male known to me from an admission in June who presents for abnormal labs. He notes that he was in his baseline state of health and had absolutely nothing that he felt like was wrong with him but was due for routine labs just basically to his knowledge because of his HFpEF and chronic diuretic therapy. He was found to have a sodium of about 120 and sent to the ER. He had COVID about 2 weeks ago but really did not seem to have been that sick and has recovered totally He was up in [place] a few weeks ago as well and had no real symptoms. He denies any recent weight gain shortness of breath dyspnea on exertion chest pain or any other respiratory symptoms. He notes he has been walking around just fine. He continues with a very strict sodium restriction (whenever I saw him in June he was extremely astute at recognizing and restricting sodium in his diet) and notes that nothing has changed with his diet. Essentially he feels like his normal selfand notes that if he was not told about abnormal labs he would not feel bad at all. Principal Diagnosis Hyponatremia Discharge Exam General he is awake and alert pleasant no distress. HEENT normocephalic atraumatic mucous membranes moist. Breathing unlabored no accessory muscle use good effort. Skin shows no rashes no pallor or icterus. Neuro without focal deficits. Discharge Data Allergies Allergy/AdvReac Type Severity Reaction Status Date / Time No Known Allergies Allergy Verified 11/25/22 19:26 Ordered Studies 11/25/22 15:04 US venous doppler LE BI Stat 11/25/22 17:38 CT angio chest PE protocol Stat Hospital Course (1) Hyponatremia: Improvingup to 128, continues to feel well and is stable for home. Hyponatremia was most likely a mixed picture. Suspect there may be some component of chronic decompensation of HFpEF given presence of pulmonary edema and bilateral pleural effusions on chest CT--suggestive of CHF-mediated hyponatremia. Additionally, patient's urine sodium level being on the lower side of normal suggests a degree of fluid retention that is possibly due to SIADH. Additionally today he mentions there may have been some polydipsia whenever his personal lines account executive had informed him recently to try to drink more fluids. Sodium is now corrected to 128, safe for homeoutpatient labs next week, otherwise as below. (2) Congestive heart failure: Patient has a history of chronic longstanding HFpEF. Patient is very strict with his salt intake. At a previous admission in June, his jacquard fixer wondered if RVR was putting him into failurehe notes that he has been in sinus, and his watch has not alerted him of atrial fibrillation so it is unlikely patient is back in AFib. -Give additional Bumex which seems to help the sodium, his CT showed an appearance of decompensation, but the patient himself shows no real signs or symptoms of decompensation, and looks great/stablegiven that his diuretic dosing has been a constant titration between being undertreated and having edema, and being overtreated and feeling weak and dry, I will defer to his outpatient jacquard fixer and PCP as far as further titration given that right now it would largely be to try to treat the remainder of his hyponatremia, rather than treating any sort of CHF emergency/urgency/symptomatic decompensation. 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 He does note a degree of polydipsia given his personal lines account executive asking him to "drink more"but at the same time his urine awesome's being higher than I would expect for such a watery bloodstream, and his urine sodium being less than 20 suggesting that renal sodium retentionthere is probably a degree of SIADH at play. He did have COVID a few weeks ago, and we have seen some recent cases where people have had transient SIADH related to COVID. Stable for home Basic metabolic panel Wednesday then periodically thereafter Discussed a modest fluid restriction and close follow-upfor now recommended about 60-70 ounces of water on the day, with an additional 2-5/h of exercise, this can obviously continue to be adjusted based on how he is doing and what his labs show. (4) Elevated troponin: Would really label it as demand ischemia, but probably more just myocardial wall stretch with his CHF. (5) Pleural effusion: This is likely due to patient's known history of HFpEF. Patient denies shortness of breath and is sating well on room air. -Given that he is totally asymptomatic, no indication for thoracentesis at this time. Outpatient follow-up. (6) Filling defect on imaging study: CT shows filling defects - very small, radiology suspects shunting. Patient is on anticoagulation and not symptomatic, no DVT noted on Doppler, so doubtful of a VTE. -Continue Eliquis for Afib. (7) Hypothyroid: TSH is up and free T4 is OK, probably sick euthyroid from above. -Follow up in ~4wks. (8) Enlarged prostate: home meds (9) DVT prophylaxis: -Anticoagulated, on Eliquis. (10) Discharge planning issues: safe/stable for home Total Time Total Time Spent Total Time Spent (In Minutes): Less than 30 Discharge Plan Discharge Items Patient Disposition: Home - Self-Care Reason For Visit: SEVERE HYPONATREMIA Discharge Diagnosis: Hyponatremia Activity: Resume your previous activity Non-emergency contact: Primary Care Provider Call non-emergency contact if: you have any medication questions and your symptoms worsen Follow-up/Referrals: Tin Overton [Primary Care Provider] - 12/04/22 3:25 pm Rene Chávez DO [Physician] - (The office will be calling you to schedule this appointment) Diet: Heart Healthy Fluids: 2000ml (8 cups) Addtl Attending Provider Instructions: You were admitted to the hospital for hyponatremia (low sodium level). You were treated with fluid restriction, salt tabs, and other medicines. Your symptoms have significantly improved and we feel it is safe for you to return home. A discharge summary will be sent to your primary care physician to ensure continuity of care. Please bring this discharge summary with you to your next office appointment so that your provider can review it at that time. Follow-up appointments: Make a follow-up appointment with your PCP within the next week. It is very important that you follow up with them shortly after discharge from the hospital. We have requested a follow-up appointment with your jacquard fixer (Dr. Chávez) within one week of discharge. Please call their office if you do not hear from them by Wednesday. Keep all your follow-up appointments as already scheduled. If you cannot make an appointment, notify your provider. Medications: Take your medications as instructed; do not skip a dose of your medicines. Make sure all of your doctors know every medicine you are taking (including bagf-ndd-hvfsvym medicines, vitamins, and supplements). Call your primary care provider before taking any new medicines (including bnsv-zwb-wjoiqgh medicines, vitamins, and supplements), because some of these may interact with your current medications, or may make your symptoms worse. Tell your primary care provider if you cannot afford your medications. CONTACT YOUR PRIMARY CARE PROVIDER if you experience any of the following: Fatigue Shortness of breath Difficulty following your treatment plan, or difficulty taking medications CALL 911 OR GO TO THE EMERGENCY DEPARTMENT if you experience any of the following: Sudden, severe abdominal pain or nausea/vomiting Severe chest pain, or chest pain that radiates (moves) to your jaw or arm Sudden, severe shortness of breath or difficulty breathing Thank you for allowing us to participate in your care. Pending Studies at Discharge: No Stand-Alone Forms: My [facility] [employer] Medications and DC Order Prescriptions: Continued atorvastatin 20 mg Tablet 20 mg PO HS levothyroxine 88 mcg Tablet 88 mcg PO QAM tamsulosin 0.4 mg Capsule 0.8 mg PO HS lansoprazole 30 mg Capsule,Delayed Release(Dr/Ec) 30 mg PO QAM coenzyme Q10 [CoQ-10] 100 mg Capsule 100 mg PO QAM PreserVision AREDS-2 [id number] hv-[id number]-[id number]-mg Capsule 1 tab PO QAM amiodarone 200 mg tablet 200 mg PO BID cyanocobalamin (vitamin B-12) [Vitamin B-12] 1,000 mcg Tablet 1,000 mcg PO QAM bumetanide 0.5 mg tablet 0.5 mg PO QAM docusate sodium [Stool Softener] 100 mg Capsule 100 mg PO HS Eliquis 2.5 mg tablet 2.5 mg PO BID Probiotic 5 billion cell Capsule, Sprinkle 1 cap PO HS Jardiance 10 mg tablet 5 mg PO DAILY Discharge Orders: Discharge Order (Routine); Ordered 11/27/22 Ordered By: Mauricio Jama Admission Data Admit Date/Time: 11/25/22 19:32 Attending Provider: Arias Alcazar Admit Provider: Arias Alcazar Primary Care Provider: Tin Overton Other Interventions: Discharge Summary Assessment (RN) Last Done: 11/27/22 13:48 Coding Level of Care Code 21103 IN/OBS DISCH 30 MIN/LESS Diagnoses Hyponatremia E87.1 Congestive heart failure I50.9 SIADH (syndrome of inappropriate ADH production) E22.2 Elevated troponin R77.8 Pleural effusion J90 Filling defect on imaging study R93.89 Hypothyroid E03.9 Enlarged prostate N40.0 DVT prophylaxis Z29.9 Discharge planning issues Z02.9
== END 2022-11-27 14:34 | disposition home or self-care (01) | DRG 641 ==
LOC: ED 14:01 → 3E 19:32